=== PATIENT | female | born 1945 | race Caucasian/White ===

== ENCOUNTER 2017-03-19 05:51 | Day surgery (SDC) | payer MEDICARE, OTHER ==
[2017-03-19] MEDS ORDERED: DIPRIVAN 200 MG/20 ML IV ONE (05:52)
[2017-03-19] MEDS ORDERED: Versed 2 MG/2 ML Injection IV ONE (05:52)
[2017-03-19] MEDS ORDERED: Lactated Ringers 1,000 ML IV SCH (06:00)
[2017-03-19 08:42] VITALS: O2SAT 95
--- NOTE | 2017-03-19 08:46 | OP ---
SURGERY DATE/TIME: 03/19/2017723 PREOPERATIVE DIAGNOSIS: Screening colonoscopy. POSTOPERATIVE DIAGNOSES: 1) Normal colon. 2) Poor bowel prep. PROCEDURE: Colonoscopy. SURGEON: Joseph Gee M.D. ANESTHESIA: MAC by Kenny Link CRNA. ESTIMATED BLOOD LOSS: None. SPECIMENS: None. DESCRIPTION OF PROCEDURE: After informed written consent was obtained, the patient was taken to the endoscopy suite. She underwent monitored anesthesia and digital rectal exam showed no internal lesions. The scope was inserted into the rectum and sequentially the entire colonic mucosa was traversed. There was elim ira-green liquid stool throughout the entire length of the colon. The level of cecum was reached and verified with direct visualization of ileocecal valve. Upon withdrawal careful mucosal inspection revealed no gross abnormalities but again there were multiple areas of liquid stool that was attempted to be suction to give the best view possible but no obvious lesions were encountered. Prior to withdrawal retroflexion showed no internal lesions. The scope was removed and the patient was transferred to the recovery room in excellent condition.
[2017-03-19 09:05] VITALS: BP 128/58; PULSE 57
== END 2017-03-19 09:22 | disposition home or self-care (01) ==
LOC: SDC 05:51
PROVIDERS: ATTEND Family Medicine
PROC: 0DJD8ZZ Inspection of Lower Intestinal Tract, Via Natural or Artificial Opening Endoscopic (ICD-10-PCS; principal; 2017-03-19)
DX: Z12.11 Encounter for screening for malignant neoplasm of colon (principal)
CPT/HCPCS: 00810; 99100; G0121; J2250; J2704

== ENCOUNTER 2017-08-10 12:33 | Emergency (ER) | payer MEDICARE, OTHER ==
[2017-08-10] MEDS ORDERED: Sodium Chloride 0.9% 1000 ML 1,000 ML IV STA (12:42)
--- NOTE | 2017-08-10 12:58 | ERPHSYRPT ---
- History of Present Illness Time Seen by Provider: 08/10/17 12:56 Source: patient Patient Subjective Stated Complaint: PT STATES SHE HAS FELT WEAK OVER THE PAST FEW DAYS. STATES SHE HAS HAD A LEFT KNEE REPLACEMENT IN THE LAST 3 WEEKS. Triage Nursing Assessment: PT PALE, WARM, DRY. LUNG SOUNDS CLEAR ADN EQUAL. LEFT KNEE INCISION INTACT. NO REDNESS OR SWELLING NOTED. STERI-STRIPS IN PLACE. Physician History: c/o weakness for 2-3 days, left knee surgery 3 weeks ago Timing/Duration: day(s) Severity: mild Associated Symptoms: weakness Allergies/Adverse Reactions: No Known Drug Allergies Allergy (Verified 08/10/17 12:39) Home Medications: Omeprazole Magnesium [Prilosec Otc] 40 mg PO DAILY 03/14/17 [History] Ropinirole HCl 1 mg PO QHS 03/14/17 [History] Simvastatin 20Mg [Zocor 20Mg] 20 mg PO DAILY 03/14/17 [History] Calcium Carbonate/Vitamin D3 [Calcium 500-Vit D3 600 Tablet] 1 each PO DAILY [History] Hydrocodone/Acetaminophen [Hydrocodone-Acetamin 7.5-325] 1 tab PO Q4-6HPRN PRN 08/10/17 [History] Ondansetron HCl [Zofran] 4 mg PO Q6-8HPRN PRN 08/10/17 [History] Vitamin B Complex [Hi B Complex] 1 each PO DAILY 08/10/17 [History] Hx Tetanus, Diphtheria Vaccination/Date Given: Yes (UNKNOWN) Hx Influenza Vaccination/Date Given: Yes Hx Pneumococcal Vaccination/Date Given: No Immunizations Up to Date: Yes - Review of Systems Constitutional: Weakness, No Fever, No Chills Eyes: No Symptoms Ears, Nose, & Throat: No Symptoms Respiratory: No Cough, No Dyspnea Cardiac: No Chest Pain, No Edema, No Syncope Abdominal/Gastrointestinal: No Abdominal Pain, No Nausea, No Vomiting, No Diarrhea Genitourinary Symptoms: No Dysuria Musculoskeletal: No Back Pain, No Neck Pain Skin: No Rash Neurological: No Dizziness, No Focal Weakness, No Sensory Changes Psychological: No Symptoms Endocrine: No Symptoms All Other Systems: Reviewed and Negative - Past Medical History Pertinent Past Medical History: Yes Neurological History: No Pertinent History ENT History: No Pertinent History Cardiac History: High Cholesterol Respiratory History: No Pertinent History Endocrine Medical History: No Pertinent History Musculoskeletal History: No Pertinent History GI Medical History: GERD History: No Pertinent History Psycho-Social History: No Pertinent History Female Reproductive Disorders: No Pertinent History Other Medical History: Restless leg syndrome - Past Surgical History Past Surgical History: Yes Neuro Surgical History: No Pertinent History Cardiac: No Pertinent History Respiratory: No Pertinent History Gastrointestinal: No Pertinent History Genitourinary: No Pertinent History Musculoskeletal: Joint Replacement, Orthopedic Surgery Female Surgical History: Other Other Surgical History: Wrist surgery. Leg surgery. Bladder tie up. EGD - Social History Smoking Status: Never smoker Exposure to second hand smoke: Yes Drug Use: none Patient Lives Alone: No - Female History Hx Now: No - Nursing Vital Signs Nursing Vital Signs: Initial Vital Signs Temperature 98.3 F 08/10/17 12:34 Pulse Rate 70 08/10/17 12:34 Respiratory Rate 20 08/10/17 12:34 Blood Pressure 191/94 08/10/17 12:34 O2 Sat by Pulse Oximetry 98 08/10/17 12:34 Pain Scale Pain Intensity 0 - Physical Exam General Appearance: no apparent distress, alert Eye Exam: PERRL/EOMI, eyes nml inspection Ears, Nose, Throat Exam: normal ENT inspection, TMs normal, pharynx normal, moist mucous membranes Neck Exam: normal inspection, non-tender, supple, full range of motion Respiratory Exam: normal breath sounds, lungs clear, No respiratory distress Cardiovascular Exam: regular rate/rhythm, normal heart sounds, normal peripheral pulses Gastrointestinal/Abdomen Exam: soft, normal bowel sounds, No tenderness, No mass Back Exam: normal inspection, normal range of motion, No CVA tenderness, No vertebral tenderness Extremity Exam: normal inspection, normal range of motion, pelvis stable Neurologic Exam: alert, oriented x 3, cooperative, normal mood/affect, nml cerebellar function, nml station & gait, sensation nml, No motor deficits Skin Exam: normal color, warm, dry, No rash Lymphatic Exam: No adenopathy SpO2: 98 Oxygen Delivery: Room Air - Course Nursing assessment & vital signs reviewed: Yes - Radiology Exams Chest X-ray Interpretation: Reviewed by me Ordered Tests: Active Orders 24 hr Category Date Time Status EKG-ER Only STAT Care 08/10/17 12:53 Active IV Insertion STAT Care 08/10/17 12:52 Active cath [Cath for Specimen-Straight] STAT Care 08/10/17 13:11 Active CHEST 2 VIEWS (PA AND LAT) Stat Exams 08/10/17 12:43 Taken CBC W DIFF Stat Lab 08/10/17 12:55 Completed CMP Stat Lab 08/10/17 12:55 Completed MAGNESIUM Stat Lab 08/10/17 12:55 Completed UA W/RFX UR CULTURE Stat Lab 08/10/17 12:55 Completed Medication Summary Discontinued Medications Generic Name Dose Route Start Last Admin Trade Name Rik PRN Reason Stop Dose Admin Sodium Chloride 1,000 mls @ 999 mls/hr 08/10/17 12:42 08/10/17 13:06 Sodium Chloride 0.9% 1000 Ml IV 08/10/17 13:42 999 mls/hr .Q1H1M STA Administration Sodium Chloride Confirm 08/10/17 13:05 Sodium Chloride 0.9% 1000 Ml Administered 08/10/17 13:06 Dose 1,000 mls @ ud .ROUTE .STK-MED ONE Lab/Rad Data: Laboratory Result Diagrams 08/10/17 12:55 08/10/17 12:55 Laboratory Results 08/10/17 08/10/17 08/10/17 Range/Units 12:55 12:55 12:55 WBC 5.7 (4.0-10.5) K/mm3 RBC 3.61 L (4.1-5.4) M/mm3 Hgb 10.8 L (12.0-16.0) gm/dl Hct 35.0 (35-47) % MCV 97.0 (78-100) fl MCH 29.9 (26-32) pg MCHC 30.9 L (32-36) g/dl RDW 13.3 (11.5-14.0) % Plt Count 412 (150-450) K/mm3 MPV 9.9 H (6-9.5) fl Gran % 70.2 H (36.0-66.0) % Lymphocytes % 16.3 L (24.0-44.0) % Monocytes % 11.5 (0.0-12.0) % Eosinophils % 1.6 (0.00-5.0) % Basophils % 0.4 (0.0-0.4) % Basophils # 0.02 (0-0.4) Sodium 138 (136-145) mEq/L Potassium 4.0 (3.5-5.1) mEq/L Chloride 101 (98-107) mEq/L Carbon Dioxide 30.5 (21-32) mEq/L Anion Gap 10.6 (5-15) MEQ/L BUN 10 (9-20) mg/dL Creatinine 0.80 (0.55-1.30) mg/dl Estimated GFR > 60 ML/MIN Glucose 107 (70-110) MG/DL Calcium 8.9 (8.5-10.1) mg/dL Magnesium 2.6 H (1.8-2.4) mg/dL Total Bilirubin 0.40 (0.2-1.0) mg/dL AST 20 (15-37) U/L ALT 21 (12-78) U/L Alkaline Phosphatase 77 (46-116) U/L Serum Total Protein 6.7 (6.4-8.2) gm/dL Albumin 3.4 (3.4-5.0) g/dL Ur Collection Type CATH Urine Color YELLOW (YELLOW) Urine Appearance CLEAR (CLEAR) Urine pH 8.0 (5-6) Ur Specific [place] 1.005 (1.005-1.025) Urine Protein NEGATIVE (Negative) Urine Ketones NEGATIVE (NEGATIVE) Urine Blood NEGATIVE (0-5) Brendan/ul Urine Nitrite NEGATIVE (NEGATIVE) Urine Bilirubin NEGATIVE (NEGATIVE) Urine Urobilinogen NORMAL (0-1) mg/dL Ur Leukocyte Esterase NEGATIVE (NEGATIVE) Urine Culture Reflexed NO (NO) Urine Glucose NEGATIVE (NEGATIVE) mg/dL Specimen Received 1255 08/10/17 - Progress Progress: improved Counseled pt/family regarding: lab results, diagnosis, need for follow-up, rad results - Departure Time of Disposition: 13:49 Departure Disposition: Home Clinical Impression: Weakness generalized Iron deficiency anemia Qualifiers: Iron deficiency anemia type: chronic blood loss Qualified Code(s): D50.0 - Iron deficiency anemia secondary to blood loss (chronic) Condition: Stable Critical Care Time: No Referrals: MARIELOS MCCORD MD [Primary Care Provider] - Instructions: Anemia Caused by Low Iron, Adult (DC) Additional Instructions: LUIS ANTONIO NORMAN was seen on 08/10/17 n the Emergency Room. At that time you were treated for an emergent condition, during your visit Laboratory, Radiology and/or other procedures may have been ordered. It is very important that you follow-up with your Primary Care Physician MARIELOS MCCORD within the next 24- 48 hours to review your Emergency Room visit and the final results of testing that was ordered. Some test results such as Urine Cultures, Blood Cultures, and other cultures if ordered will not be finalized for 24-48 hours. If you do not have a Primary Care Provider please call the medical records department at [phone] to obtain a copy of your results or you may sign into our patient portal to obtain these results by visiting us @ [email or web address] and completing the following steps: 1. Click on the Patient Portal link 2. Click the Patient Self Enrollment Link to complete the enrollment form and entering your 3. Once the enrollment form is completed you will receive an email with a temporary ID and password at the email address you provided. 4. Next choose a user name and password. Your user name must be at least 4 characters long and your password must be at least 4 characters long. 5. Choose a security question from the list and provide your answer to the question. If you already have signed into the Health Portal you may access your Health Care Information 03/02 by the following steps: 1. Login to our website @ [email or web address] 2. Enter your original user name and password. FAQS The [facility] Health Portal is an online tool that contains your Lab Results, Radiology Reports, Visit History, Discharge Instructions and Health Summary Lab and Radiology Results will not be available for 72 hours on the portal. The Portal is a secure site, passwords are encryted and URLs are re-written so they cannot be copied and pasted. You and authorized family members are the only ones who can access your Portal. Also there is a timeout feature that protects your information if you leave the Portal page open. If you have technical difficulty please use the Contact Us link on the page this will allow you to submit any questions you have regarding the Portal or you may contact the Medical Record Department at [phone].
[2017-08-10 13:02] LABS: Appearance CLEAR (CLEAR); BASOPHIL % 0.4 % (0.0-0.4); Basophil (Absolute #) 0.02 (0-0.4); Bilirubin NEGATIVE (NEGATIVE); Blood NEGATIVE Ery/ul (0-5); Eosinophil % 1.6 % (0.00-5.0); Eosinophil (Absolute #) 0.09 (0-0.5); Glucose NEGATIVE (NEGATIVE); Granulocyte Absolute (ANC) 3.97 (1.4-6.9); Granulocytes % 70.2 % (36.0-66.0); Hemoglobin 10.8 gm/dl (12.0-16.0); Ketones NEGATIVE (NEGATIVE); Leukocyte Esterase NEGATIVE (NEGATIVE); Lymphocyte (Absolute #) 0.92 (1.0-4.6); Lymphocytes % 16.3 % (24.0-44.0); Mean Corpuscular Hemoglobin 29.9 pg (26-32); Mean Corpuscular Hgb Concent. 30.9 g/dl (32-36); Mean Platelet Volume 9.9 fl (6-9.5); Monocyte (Absolute #) 0.65 (0.0-1.3); Monocytes % 11.5 % (0.0-12.0); Nitrite NEGATIVE (NEGATIVE); Platelet Count 412 K/mm3 (150-450); Protein,Urine Dip NEGATIVE (Negative); Red Blood Count 3.61 M/mm3 (4.1-5.4); Red Cell Distribution Width 13.3 % (11.5-14.0); Specific Gravity 1.005 (1.005-1.025); Urobilinogen NORMAL mg/dL (0-1); White Blood Count 5.7 K/mm3 (4.0-10.5)
[2017-08-10] MEDS ORDERED: Sodium Chloride 0.9% 1000 ML 1,000 ML ONE (13:05)
[2017-08-10 13:27] LABS: ALBUMIN 3.4 g/dL (3.4-5.0); ALKALINE PHOSPHATASE 77 U/L (46-116); ANION GAP 10.6 MEQ/L (5-15); BLOOD UREA NITROGEN 10 mg/dL (9-20); CHLORIDE 101 mEq/L (98-107); Calcium 8.9 mg/dL (8.5-10.1); Carbon Dioxide 30.5 mEq/L (21-32); EST GLOMERULAR FILTRATION RATE > 60 ML/MIN; Glucose 107 MG/DL (70-110); MAGNESIUM 2.6 mg/dL (1.8-2.4); SGOT/AST 20 U/L (15-37); SGPT/ALT 21 U/L (12-78); SODIUM 138 mEq/L (136-145); Total Protein 6.7 gm/dL (6.4-8.2)
[2017-08-10 14:32] VITALS: BP 160/80; PULSE 64; O2SAT 97
--- NOTE | 2017-08-10 20:53 | XRAY ---
Indication: Malaise and weakness. Comparison: May 21, 2016. PA/lateral chest remains hyperinflated and clear. Heart is not enlarged. Stable hiatal hernia. Bony thorax intact again with osteopenia, mild degenerative changes, old right rib fractures, and scoliosis. Impression: Stable nonacute chest with chronic features.
== END 2017-08-10 14:31 | disposition home or self-care (01) ==
LOC: ED 12:33
DX: M62.81 Muscle weakness (generalized) (principal); D50.0 Iron deficiency anemia secondary to blood loss (chronic); K21.9 Gastro-esophageal reflux disease without esophagitis; Z79.899 Other long term (current) drug therapy
CPT/HCPCS: 99284; 36000; 96360; 93005; 81002; 36415; 83735; 85025; 80053; 71046; P9612

== ENCOUNTER 2017-08-13 22:58 | Emergency (ER) | payer MEDICARE, OTHER ==
[2017-08-13] MEDS ORDERED: Sodium Chloride 0.9% 1000 ML 1,000 ML IV STA (23:24)
--- NOTE | 2017-08-13 23:28 | ERPHSYRPT ---
- History of Present Illness Time Seen by Provider: 08/13/17 23:17 Source: patient Exam Limitations: no limitations Patient Subjective Stated Complaint: Came in on Friday for weakness and weakness has gotten worse Triage Nursing Assessment: A&O x3, gait unsteady, pt states that she is anemic, muscles don't ache, complains of weakness, left knee surgery 3 weeks ago, states that she has lost 15 lbs over 3 weeks, no appetite, bilateral pulses strong Physician History: 72 y/o female comes back to the ER with complaints of weakness for the last several days. Pt was seen on Friday with similar complaints but states that the weakness has gotten worse. Pt admits to having 4 small bowel movements today but prior to this has been constipated. Pt says that she felt weak like this before at which time she had a bleeding ulcer. Pt states she has lost 15 lbs in the last 3 months and states she has no appetite. Pt denies any fever, chills, chest pain, shortness of breath, dizziness, cough, runny nose, sore throat or muscle aches. Timing/Duration: day(s) Severity: moderate Modifying Factors: Improves With: nothing Allergies/Adverse Reactions: No Known Drug Allergies Allergy (Verified 08/13/17 23:24) Home Medications: Omeprazole Magnesium [Prilosec Otc] 40 mg PO DAILY 03/14/17 [History] Ropinirole HCl 1 mg PO QHS 03/14/17 [History] Simvastatin 20Mg [Zocor 20Mg] 20 mg PO DAILY 03/14/17 [History] Calcium Carbonate/Vitamin D3 [Calcium 500-Vit D3 600 Tablet] 1 each PO DAILY [History] Hydrocodone/Acetaminophen [Hydrocodone-Acetamin 7.5-325] 1 tab PO Q4-6HPRN PRN 08/10/17 [History] Ondansetron HCl [Zofran] 4 mg PO Q6-8HPRN PRN 08/10/17 [History] Vitamin B Complex [Hi B Complex] 1 each PO DAILY 08/10/17 [History] Aspirin 81 mg PO DAILY 08/13/17 [History] Hx Tetanus, Diphtheria Vaccination/Date Given: Yes (UNKNOWN) Hx Influenza Vaccination/Date Given: Yes Hx Pneumococcal Vaccination/Date Given: No - Review of Systems Constitutional: Weakness, No Fever, No Chills Eyes: No Symptoms Ears, Nose, & Throat: No Symptoms Respiratory: No Cough, No Dyspnea Cardiac: No Chest Pain, No Edema, No Syncope Abdominal/Gastrointestinal: Constipation, No Abdominal Pain, No Nausea, No Vomiting, No Diarrhea Genitourinary Symptoms: No Dysuria Musculoskeletal: No Back Pain, No Neck Pain, No Myalgias Skin: No Symptoms, No Rash Neurological: No Dizziness, No Focal Weakness, No Headache, No Sensory Changes, No Speech Changes Psychological: No Symptoms Endocrine: No Symptoms All Other Systems: Reviewed and Negative - Past Medical History Pertinent Past Medical History: Yes Neurological History: No Pertinent History ENT History: No Pertinent History Cardiac History: High Cholesterol Respiratory History: No Pertinent History Endocrine Medical History: No Pertinent History Musculoskeletal History: No Pertinent History GI Medical History: GERD History: No Pertinent History Psycho-Social History: No Pertinent History Female Reproductive Disorders: No Pertinent History Other Medical History: Restless leg syndrome - Past Surgical History Past Surgical History: Yes Neuro Surgical History: No Pertinent History Cardiac: No Pertinent History Respiratory: No Pertinent History Gastrointestinal: No Pertinent History Genitourinary: No Pertinent History Musculoskeletal: Joint Replacement, Orthopedic Surgery Female Surgical History: Other Other Surgical History: Wrist surgery. Leg surgery. Bladder tie up. EGD - Social History Smoking Status: Never smoker Exposure to second hand smoke: Yes Drug Use: none Patient Lives Alone: No - Nursing Vital Signs Nursing Vital Signs: Initial Vital Signs Temperature 97.5 F 08/13/17 23:14 Blood Pressure 159/77 08/13/17 23:14 Pain Scale Pain Intensity 0 - Physical Exam General Appearance: no apparent distress, alert Eye Exam: PERRL/EOMI, eyes nml inspection Ears, Nose, Throat Exam: normal ENT inspection, TMs normal, pharynx normal, moist mucous membranes Neck Exam: normal inspection, non-tender, supple, full range of motion Respiratory Exam: normal breath sounds, lungs clear, No respiratory distress Cardiovascular Exam: regular rate/rhythm, normal heart sounds, normal peripheral pulses Gastrointestinal/Abdomen Exam: soft, normal bowel sounds, No tenderness, No distention, No mass Back Exam: normal inspection, normal range of motion, No CVA tenderness, No vertebral tenderness Extremity Exam: normal inspection, normal range of motion, pelvis stable Neurologic Exam: alert, oriented x 3, cooperative, normal mood/affect, nml cerebellar function, nml station & gait, sensation nml, No motor deficits Skin Exam: normal color, warm, dry, No rash Lymphatic Exam: No adenopathy Oxygen Delivery: Room Air - Course Nursing assessment & vital signs reviewed: Yes Ordered Tests: Active Orders 24 hr Category Date Time Status EKG-ER Only STAT Care 08/13/17 23:24 Active KUB Stat Exams 08/13/17 12:00 Taken CBC W DIFF Stat Lab 08/13/17 23:41 Completed CMP Stat Lab 08/13/17 23:41 Completed Erythrocyte Sedimentation Rate Stat Lab 08/13/17 23:41 Completed Mower Screen Stat Lab 08/13/17 23:41 Completed TROPONIN Q3H Lab 08/13/17 23:41 Completed TROPONIN Q3H Lab 08/14/17 02:30 Ordered TROPONIN Q3H Lab 08/14/17 05:30 Ordered TROPONIN Q3H Lab 08/14/17 08:30 Ordered TROPONIN Q3H Lab 08/14/17 11:30 Ordered TSH, 3RD Generation Routine Lab 08/13/17 23:41 Completed UA W/ MICROSCOPIC Stat Lab 08/13/17 00:31 Completed Medication Summary Discontinued Medications Generic Name Dose Route Start Last Admin Trade Name Trayq PRN Reason Stop Dose Admin Sodium Chloride 1,000 mls @ 999 mls/hr 08/13/17 23:24 08/13/17 23:55 Sodium Chloride 0.9% 1000 Ml IV 08/14/17 00:24 999 mls/hr .Q1H1M STA Administration Sodium Chloride Confirm 08/13/17 23:54 Sodium Chloride 0.9% 1000 Ml Administered 08/13/17 23:55 Dose 1,000 mls @ ud .ROUTE .STK-MED ONE Potassium Chloride 40 meq 08/14/17 00:31 08/14/17 00:34 Klor Con 10 Meq PO 08/14/17 00:32 40 meq STAT ONE Administration Potassium Chloride Confirm 08/14/17 00:34 Klor Con 10 Meq Administered 08/14/17 00:35 Dose 40 meq PO .STK-MED ONE Lab/Rad Data: Laboratory Result Diagrams 08/13/17 23:41 08/13/17 23:41 Laboratory Results 08/13/17 08/13/17 08/13/17 Range/Units 23:41 23:41 23:41 WBC (4.0-10.5) K/mm3 RBC (4.1-5.4) M/mm3 Hgb (12.0-16.0) gm/dl Hct (35-47) % MCV (78-100) fl MCH (26-32) pg MCHC (32-36) g/dl RDW (11.5-14.0) % Plt Count (150-450) K/mm3 MPV (6-9.5) fl Gran % (36.0-66.0) % Lymphocytes % (24.0-44.0) % Monocytes % (0.0-12.0) % Eosinophils % (0.00-5.0) % Basophils % (0.0-0.4) % Basophils # (0-0.4) ESR (0-20) mm/hr Sodium 142 (136-145) mEq/L Potassium 3.4 L (3.5-5.1) mEq/L Chloride 106 (98-107) mEq/L Carbon Dioxide 26.0 (21-32) mEq/L Anion Gap 13.7 (5-15) MEQ/L BUN 12 (9-20) mg/dL Creatinine 0.93 (0.55-1.30) mg/dl Estimated GFR > 60 ML/MIN Glucose 122 H (70-110) MG/DL Calcium 9.0 (8.5-10.1) mg/dL Total Bilirubin 0.20 (0.2-1.0) mg/dL AST 11 L (15-37) U/L ALT 17 (12-78) U/L Alkaline Phosphatase 81 (46-116) U/L Troponin I < 0.017 (0.000-0.056) ng/ml Serum Total Protein 6.7 (6.4-8.2) gm/dL Albumin 3.4 (3.4-5.0) g/dL TSH 3rd Generation 2.106 (0.358-3.740) mIU/L Ur Collection Type Urine Color (YELLOW) Urine Appearance (CLEAR) Urine pH (5-6) Ur Specific [place] (1.005-1.025) Urine Protein (Negative) Urine Ketones (NEGATIVE) Urine Blood (0-5) Brendan/ul Urine Nitrite (NEGATIVE) Urine Bilirubin (NEGATIVE) Urine Urobilinogen (0-1) mg/dL Ur Leukocyte Esterase (NEGATIVE) Urine Microscopic RBC (0-2) /HPF Urine Microscopic WBC (0-5) /HPF Ur Epithelial Cells (FEW) /HPF Urine Bacteria (NEGATIVE) /HPF Urine Mucus (NEGATIVE) /HPF Urine Culture Reflexed (NO) Urine Glucose (NEGATIVE) mg/dL Monoscreen NEGATIVE (Negative) Influenza Type A Ag (NEGATIVE) Influenza Type B Ag (NEGATIVE) RSV (PCR) (Negative) Specimen Received 08/13/17 08/13/17 08/13/17 Range/Units 23:41 23:31 00:31 WBC 6.1 (4.0-10.5) K/mm3 RBC 3.82 L (4.1-5.4) M/mm3 Hgb 11.7 L (12.0-16.0) gm/dl Hct 37.2 (35-47) % MCV 97.4 (78-100) fl MCH 30.6 (26-32) pg MCHC 31.5 L (32-36) g/dl RDW 13.5 (11.5-14.0) % Plt Count 376 (150-450) K/mm3 MPV 10.0 H (6-9.5) fl Gran % 61.2 (36.0-66.0) % Lymphocytes % 20.7 L (24.0-44.0) % Monocytes % 13.7 H (0.0-12.0) % Eosinophils % 3.6 (0.00-5.0) % Basophils % 0.8 (0.0-0.4) % Basophils # 0.05 (0-0.4) ESR 21 H (0-20) mm/hr Sodium (136-145) mEq/L Potassium (3.5-5.1) mEq/L Chloride (98-107) mEq/L Carbon Dioxide (21-32) mEq/L Anion Gap (5-15) MEQ/L BUN (9-20) mg/dL Creatinine (0.55-1.30) mg/dl Estimated GFR ML/MIN Glucose (70-110) MG/DL Calcium (8.5-10.1) mg/dL Total Bilirubin (0.2-1.0) mg/dL AST (15-37) U/L ALT (12-78) U/L Alkaline Phosphatase (46-116) U/L Troponin I (0.000-0.056) ng/ml Serum Total Protein (6.4-8.2) gm/dL Albumin (3.4-5.0) g/dL TSH 3rd Generation (0.358-3.740) mIU/L Ur Collection Type VOID Urine Color YELLOW (YELLOW) Urine Appearance CLEAR (CLEAR) Urine pH 5.0 (5-6) Ur Specific [place] 1.020 (1.005-1.025) Urine Protein NEGATIVE (Negative) Urine Ketones NEGATIVE (NEGATIVE) Urine Blood NEGATIVE (0-5) Brendan/ul Urine Nitrite NEGATIVE (NEGATIVE) Urine Bilirubin NEGATIVE (NEGATIVE) Urine Urobilinogen NORMAL (0-1) mg/dL Ur Leukocyte Esterase TRACE (NEGATIVE) Urine Microscopic RBC 0-2 (0-2) /HPF Urine Microscopic WBC 0-2 (0-5) /HPF Ur Epithelial Cells MODERATE (FEW) /HPF Urine Bacteria FEW (NEGATIVE) /HPF Urine Mucus SLIGHT (NEGATIVE) /HPF Urine Culture Reflexed NO (NO) Urine Glucose NEGATIVE (NEGATIVE) mg/dL Monoscreen (Negative) Influenza Type A Ag NEGATIVE (NEGATIVE) Influenza Type B Ag NEGATIVE (NEGATIVE) RSV (PCR) NEGATIVE (Negative) Specimen Received 08/14/1729 - Progress Progress: improved Progress Note: 08/14/17 01:08 The patient feels better after receiving NS fluids. The abdominal x ray is normal. The labs are all within normal limits except for the potassium level which has been replaced. The patient will be d/c home with advise to F/U with PCP. - Departure Time of Disposition: 01:09 Departure Disposition: Home Clinical Impression: Weakness Condition: Stable Critical Care Time: No Referrals: MARIELOS MCCORD MD [Primary Care Provider] - Instructions: Generalized Weakness (DC) Additional Instructions: Follow up with your primary care doctor in the next few days.
[2017-08-13 23:47] LABS: BASOPHIL % 0.8 % (0.0-0.4); Basophil (Absolute #) 0.05 (0-0.4); Eosinophil % 3.6 % (0.00-5.0); Eosinophil (Absolute #) 0.22 (0-0.5); Granulocyte Absolute (ANC) 3.72 (1.4-6.9); Granulocytes % 61.2 % (36.0-66.0); Hematocrit 37.2 % (35-47); Hemoglobin 11.7 gm/dl (12.0-16.0); Lymphocyte (Absolute #) 1.26 (1.0-4.6); Lymphocytes % 20.7 % (24.0-44.0); Mean Cell Volume 97.4 fl (78-100); Mean Corpuscular Hemoglobin 30.6 pg (26-32); Mean Corpuscular Hgb Concent. 31.5 g/dl (32-36); Monocyte (Absolute #) 0.83 (0.0-1.3); Monocytes % 13.7 % (0.0-12.0); Platelet Count 376 K/mm3 (150-450); Red Blood Count 3.82 M/mm3 (4.1-5.4); Red Cell Distribution Width 13.5 % (11.5-14.0); White Blood Count 6.1 K/mm3 (4.0-10.5)
[2017-08-13] MEDS ORDERED: Sodium Chloride 0.9% 1000 ML 1,000 ML ONE (23:54)
[2017-08-14 00:08] LABS: Erythrocyte Sedimentation Rate 21 mm/hr (0-20)
[2017-08-14 00:16] LABS: ALBUMIN 3.4 g/dL (3.4-5.0); ALKALINE PHOSPHATASE 81 U/L (46-116); ANION GAP 13.7 MEQ/L (5-15); BLOOD UREA NITROGEN 12 mg/dL (9-20); CHLORIDE 106 mEq/L (98-107); Creatinine 1 0.93 mg/dl (0.55-1.30); EST GLOMERULAR FILTRATION RATE > 60 ML/MIN; Glucose 122 MG/DL (70-110); Potassium 3.4 mEq/L (3.5-5.1); SGOT/AST 11 U/L (15-37); SGPT/ALT 17 U/L (12-78); SODIUM 142 mEq/L (136-145); Total Protein 6.7 gm/dL (6.4-8.2)
[2017-08-14 00:28] LABS: TSH, 3RD Generation 2.106 mIU/L (0.358-3.740)
[2017-08-14 00:31] LABS: TROPONIN < 0.017 ng/ml (0.000-0.056)
[2017-08-14] MEDS ORDERED: Klor Con 10 MEQ PO ONE ×2 (00:31→00:34)
[2017-08-14 00:36] LABS: INFLUENZA A NEGATIVE (NEGATIVE); INFLUENZA B NEGATIVE (NEGATIVE); RESPIRATORY SYNCTIAL VIRUS NEGATIVE (Negative)
[2017-08-14 00:51] LABS: Appearance CLEAR (CLEAR); Bacteria FEW /HPF (NEGATIVE); Bilirubin NEGATIVE (NEGATIVE); Blood NEGATIVE Ery/ul (0-5); Epithelial Cells MODERATE /HPF (FEW); Glucose NEGATIVE (NEGATIVE); Ketones NEGATIVE (NEGATIVE); Leukocyte Esterase TRACE (NEGATIVE); Mucus SLIGHT /HPF (NEGATIVE); Nitrite NEGATIVE (NEGATIVE); Protein,Urine Dip NEGATIVE (Negative); Urobilinogen NORMAL mg/dL (0-1); WBC 0-2 /HPF (0-5)
[2017-08-14 01:10] VITALS: BP 158/85
--- NOTE | 2017-08-14 08:42 | XRAY ---
Indication: Anemia, weakness, constipation. Comparison: None KUB is nonacute and nonobstructed. Solid organs unremarkable. 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 Scattered aortic calcifications. Impression: Negative KUB with chronic features.
== END 2017-08-14 01:27 | disposition home or self-care (01) ==
LOC: ED 22:58
DX: R53.1 Weakness (principal); E87.6 Hypokalemia; Z79.899 Other long term (current) drug therapy; Z98.890 Other specified postprocedural states
CPT/HCPCS: 36000; 36415; 74018; 80053; 81000; 84443; 84484; 85025; 85652; 86308; 87631; 93005; 99283; A9270-GY

== ENCOUNTER 2019-04-01 20:15 | Observation (INO) | payer MEDICARE, OTHER ==
[2019-04-01] MEDS ORDERED: BABY ASPIRIN 81 MG CHEW PO ONE (20:50)
[2019-04-01] MEDS ORDERED: Sodium Chloride 0.9% 1000 ML 1,000 ML IV STA (20:50)
--- NOTE | 2019-04-01 20:55 | ERPHSYRPT ---
- History of Present Illness Time Seen by Provider: 04/01/19 20:40 Historian: patient Exam Limitations: no limitations Patient Subjective Stated Complaint: Chest pain Triage Nursing Assessment: Patient ambulated into ED and transferred self to bed. Patient A+O X3. Patient's skin pink, warm and dry. Patient complains of pain in left side that went up to chest and down left arm around 1830 after eating dinner. Patient complains of intermittent throbbing, sharp pain 5/10. Patient's lung clear a/p zakiya. Heart tones audible. No edema noted. Physician History: Patient had sudden onset of left chest pain that is sharp with radiation to the back and left arm. It lasted for 30 minutes. Patient states pain has resolved now. Similar symptoms occurred 3 days, but much more brief. Both occurred while eating. Timing/Duration: today Activities at Onset: other (eating) Quality: sharpness Location: central Chest Pain Radiation: arm, back Severity of Pain-Max: severe Severity of Pain-Current: none Modifying Factors: Improves With: eating Associated Symptoms: No nausea, No vomiting, No palpitations, No heartburn, No abdominal pain, No shortness of breath, No cough, No hurts to breathe, No diaphoresis, No chills, No fever, No fatigue, No weakness, No swelling/lump in chest, No syncope, No rash, No headache, No dizziness, No edema, No back pain Prior Chest Pain/Cardiac Workup: no prior cardiac workup Nitro Today/Relief: no nitro taken today Aspirin Treatment Today: 81 mg x 1 Allergies/Adverse Reactions: No Known Drug Allergies Allergy (Verified 04/01/19 20:24) Home Medications: Ropinirole HCl 1 mg PO QHS 03/14/17 [History] Simvastatin 20Mg [Zocor 20Mg] 20 mg PO DAILY 03/14/17 [History] Aspirin 81 mg PO DAILY 08/13/17 [History] Hx Tetanus, Diphtheria Vaccination/Date Given: Yes (UNKNOWN) Hx Influenza Vaccination/Date Given: Yes Hx Pneumococcal Vaccination/Date Given: No Immunizations Up to Date: Yes - Review of Systems Constitutional: No Fever, No Chills Eyes: No Discharge Ears, Nose, & Throat: No Mouth Swelling, No Throat Pain, No Painful Swallowing Respiratory: No Cough, No Dyspnea Cardiac: Chest Pain, No Edema, No Syncope Abdominal/Gastrointestinal: No Abdominal Pain, No Nausea, No Vomiting, No Diarrhea Genitourinary Symptoms: No Dysuria, No Hematuria, No Flank Pain Musculoskeletal: No Back Pain, No Neck Pain Skin: No Rash Neurological: No Dizziness, No Focal Weakness, No Sensory Changes Psychological: No Symptoms Endocrine: No Symptoms Hematologic/Lymphatic: No Easy Bleeding, No Easy Bruising All Other Systems: Reviewed and Negative - Past Medical History Pertinent Past Medical History: Yes Neurological History: No Pertinent History ENT History: No Pertinent History Cardiac History: High Cholesterol Respiratory History: No Pertinent History Endocrine Medical History: No Pertinent History Musculoskeletal History: Arthritis GI Medical History: GERD History: No Pertinent History Psycho-Social History: No Pertinent History Female Reproductive Disorders: No Pertinent History Other Medical History: Restless leg syndrome - Past Surgical History Past Surgical History: Yes Neuro Surgical History: No Pertinent History Cardiac: No Pertinent History Respiratory: No Pertinent History Gastrointestinal: No Pertinent History Genitourinary: No Pertinent History Musculoskeletal: Joint Replacement, Orthopedic Surgery Female Surgical History: Other Other Surgical History: Wrist surgery. Leg surgery. Bladder tie up. EGD - Social History Smoking Status: Never smoker Exposure to second hand smoke: Yes Drug Use: none Patient Lives Alone: No - Female History Hx Now: No - Nursing Vital Signs Nursing Vital Signs: Initial Vital Signs Pulse Rate 75 04/01/19 20:25 Respiratory Rate 18 04/01/19 20:25 Blood Pressure 183/84 04/01/19 20:25 O2 Sat by Pulse Oximetry 99 04/01/19 20:25 Pain Scale Pain Intensity 0 - Physical Exam General Appearance: no apparent distress, alert Eye Exam: PERRL/EOMI, eyes nml inspection Ears, Nose, Throat Exam: normal ENT inspection, moist mucous membranes Neck Exam: normal inspection, non-tender, supple, full range of motion Respiratory Exam: normal breath sounds, lungs clear, airway intact, No respiratory distress, No accessory muscle use, No crackles/rales, No rhonchi, No wheezing Cardiovascular Exam: regular rate/rhythm, normal heart sounds, normal peripheral pulses, capillary refill <2 sec Gastrointestinal/Abdomen Exam: soft, normal bowel sounds, No tenderness, No distention, No mass, No guarding, No rebound Back Exam: normal inspection, No CVA tenderness, No vertebral tenderness Extremity Exam: normal inspection, normal range of motion Neurologic Exam: alert, oriented x 3, cooperative, television production assistant II-XII nml as tested, normal mood/affect, sensation nml, No motor deficits Skin Exam: normal color, warm, dry SpO2 Interpretation: normal SpO2: 99 O2 Delivery: Room Air - Course Nursing assessment & vital signs reviewed: Yes EKG Interpreted by Me: RATE (73), Sinus Rhythm, NORMAL AXIS, NORMAL INTERVALS, NORMAL QRS, NORMAL ST-T, Other (negative change from EKG from 08/13/2017) Ordered Tests: Active Orders 24 hr Category Date Time Status Exchange Mechanic STAT Care 04/01/19 20:51 Active EKG-ER Only STAT Care 04/01/19 20:50 Active IV Insertion STAT Care 04/01/19 20:50 Active Pulse Oximetry (ED) STAT Care 04/01/19 20:50 Active CHEST 1 VIEW (PORTABLE) Stat Exams 04/01/19 22:02 Taken AMYLASE Stat Lab 04/01/19 20:52 Completed CBC W DIFF Stat Lab 04/01/19 20:50 Completed CMP Stat Lab 04/01/19 20:50 Completed LIPASE Stat Lab 04/01/19 20:52 Completed NT PRO BNP Stat Lab 04/01/19 20:50 Completed PROTIME WITH INR Stat Lab 04/01/19 20:50 Completed PTT Stat Lab 04/01/19 20:50 Completed TROPONIN Q3H Lab 04/01/19 21:00 Completed TROPONIN Q3H Lab 04/02/19 00:00 Ordered TROPONIN Q3H Lab 04/02/19 03:00 Ordered TROPONIN Q3H Lab 04/02/19 06:00 Ordered TROPONIN Q3H Lab 04/02/19 09:00 Ordered Medication Summary Discontinued Medications Generic Name Dose Route Start Last Admin Trade Name Trayq PRN Reason Stop Dose Admin Aspirin 243 mg 04/01/19 20:50 04/01/19 21:11 Baby Aspirin 81 Mg Chew PO 04/01/19 20:51 243 mg STAT ONE Administration Aspirin Confirm 04/01/19 21:09 Baby Aspirin 81 Mg Chew Administered 04/01/19 21:10 Dose 243 mg .ROUTE .STK-MED ONE Sodium Chloride 1,000 mls @ 999 mls/hr 04/01/19 20:50 04/01/19 22:38 Sodium Chloride 0.9% 1000 Ml IV 04/01/19 21:50 Infused .Q1H1M STA Infusion Sodium Chloride Confirm 04/01/19 21:10 Sodium Chloride 0.9% 1000 Ml Administered 04/01/19 21:11 Dose 1,000 mls @ ud .ROUTE .K-MED ONE Lab/Rad Data: Laboratory Result Diagrams 04/01/19 20:50 04/01/19 20:50 Laboratory Results 04/01/19 04/01/19 04/01/19 Range/Units 21:00 20:52 20:50 WBC (4.0-10.5) K/mm3 RBC (4.1-5.4) M/mm3 Hgb (12.0-16.0) gm/dl Hct (35-47) % MCV (78-100) fl MCH (26-32) pg MCHC (32-36) g/dl RDW (11.5-14.0) % Plt Count (150-450) K/mm3 MPV (6-9.5) fl Gran % (36.0-66.0) % Eos # (Auto) (0-0.5) Absolute Lymphs (auto) (1.0-4.6) Absolute Monos (auto) (0.0-1.3) Lymphocytes % (24.0-44.0) % Monocytes % (0.0-12.0) % Eosinophils % (0.00-5.0) % Basophils % (0.0-0.4) % Absolute Granulocytes (1.4-6.9) Basophils # (0-0.4) PT 10.9 (9.95-12.35) SECONDS INR 0.97 (0.8-3.0) APTT 33.8 (25.3-37.0) SECONDS Sodium (137-145) mmol/L Potassium (3.5-5.1) mmol/L Chloride (98-107) mmol/L Carbon Dioxide (22-30) mmol/L Anion Gap (5-15) MEQ/L BUN (7-17) mg/dL Creatinine (0.52-1.04) mg/dL Estimated GFR ML/MIN Glucose (74-106) mg/dL Calcium (8.4-10.2) mg/dL Total Bilirubin (0.2-1.3) mg/dL AST (14-36) U/L ALT (0-35) U/L Alkaline Phosphatase (38-126) U/L Troponin I < 0.012 (0.000-0.034) ng/mL NT-Pro-B Natriuret Pep (0-1800) pg/mL Serum Total Protein (6.3-8.2) g/dL Albumin (3.5-5.0) g/dL Amylase 47 (30-110) U/L Lipase 214 (23-300) U/L 04/01/19 04/01/19 Range/Units 20:50 20:50 WBC 6.7 (4.0-10.5) K/mm3 RBC 4.29 (4.1-5.4) M/mm3 Hgb 13.4 (12.0-16.0) gm/dl Hct 41.6 (35-47) % MCV 97.0 (78-100) fl MCH 31.2 (26-32) pg MCHC 32.2 (32-36) g/dl RDW 13.2 (11.5-14.0) % Plt Count 262 (150-450) K/mm3 MPV 11.1 H (6-9.5) fl Gran % 69.4 H (36.0-66.0) % Eos # (Auto) 0.16 (0-0.5) Absolute Lymphs (auto) 1.31 (1.0-4.6) Absolute Monos (auto) 0.55 (0.0-1.3) Lymphocytes % 19.6 L (24.0-44.0) % Monocytes % 8.2 (0.0-12.0) % Eosinophils % 2.4 (0.00-5.0) % Basophils % 0.4 (0.0-0.4) % Absolute Granulocytes 4.65 (1.4-6.9) Basophils # 0.03 (0-0.4) PT (9.95-12.35) SECONDS INR (0.8-3.0) APTT (25.3-37.0) SECONDS Sodium 141 (137-145) mmol/L Potassium 3.9 (3.5-5.1) mmol/L Chloride 102 (98-107) mmol/L Carbon Dioxide 30 (22-30) mmol/L Anion Gap 13.5 (5-15) MEQ/L BUN 16 (7-17) mg/dL Creatinine 0.75 (0.52-1.04) mg/dL Estimated GFR > 60.0 ML/MIN Glucose 143 H (74-106) mg/dL Calcium 9.2 (8.4-10.2) mg/dL Total Bilirubin 0.40 (0.2-1.3) mg/dL AST 25 (14-36) U/L ALT 20 (0-35) U/L Alkaline Phosphatase 64 (38-126) U/L Troponin I (0.000-0.034) ng/mL NT-Pro-B Natriuret Pep 205 (0-1800) pg/mL Serum Total Protein 7.0 (6.3-8.2) g/dL Albumin 4.3 (3.5-5.0) g/dL Amylase (30-110) U/L Lipase (23-300) U/L - Progress Progress: unchanged Air Movement: good Progress Note: 04/01/19 22:29 Patient has remained chest pain free throughout her time in the emergency department in sinus rhythm on the monitoring manager. 04/01/19 22:30 Discussed the patient with Dr Mccord, Hospitalist. Dr Mccord accepted the patient for observation to [facility] telemetry. Blood Culture(s) Obtained: No Antibiotics given: No Discussed with .: Ruddy Will see patient in: hospital (observation) Counseled pt/family regarding: lab results, diagnosis, need for follow-up, rad results - Departure Departure Disposition: Observation ([facility]) Clinical Impression: Elevated blood pressure reading without diagnosis of hypertension Chest pain Qualifiers: Chest pain type: unspecified Qualified Code(s): R07.9 - Chest pain, unspecified Condition: Fair Critical Care Time: No Referrals: MARIELOS MCCORD MD [Primary Care Provider] -
[2019-04-01 21:05] LABS: BASOPHIL % 0.4 % (0.0-0.4); Basophil (Absolute #) 0.03 (0-0.4); Eosinophil % 2.4 % (0.00-5.0); Eosinophil (Absolute #) 0.16 (0-0.5); Granulocyte Absolute (ANC) 4.65 (1.4-6.9); Granulocytes % 69.4 % (36.0-66.0); Hematocrit 41.6 % (35-47); Hemoglobin 13.4 gm/dl (12.0-16.0); Lymphocyte (Absolute #) 1.31 (1.0-4.6); Lymphocytes % 19.6 % (24.0-44.0); Mean Corpuscular Hemoglobin 31.2 pg (26-32); Mean Corpuscular Hgb Concent. 32.2 g/dl (32-36); Mean Platelet Volume 11.1 fl (6-9.5); Monocyte (Absolute #) 0.55 (0.0-1.3); Monocytes % 8.2 % (0.0-12.0); Platelet Count 262 K/mm3 (150-450); Red Blood Count 4.29 M/mm3 (4.1-5.4); Red Cell Distribution Width 13.2 % (11.5-14.0); White Blood Count 6.7 K/mm3 (4.0-10.5)
[2019-04-01 21:08] LABS: INR 0.97 (0.8-3.0); PROTIME 10.9 SECONDS (9.95-12.35)
[2019-04-01] MEDS ORDERED: BABY ASPIRIN 81 MG CHEW ONE (21:09)
[2019-04-01 21:10] LABS: PTT 33.8 SECONDS (25.3-37.0)
[2019-04-01] MEDS ORDERED: Sodium Chloride 0.9% 1000 ML 1,000 ML ONE (21:10)
[2019-04-01 21:11] LABS: AMYLASE 47 U/L (30-110); LIPASE 214 U/L (23-300)
[2019-04-01 21:22] LABS: ALBUMIN 4.3 g/dL (3.5-5.0); ALKALINE PHOSPHATASE 64 U/L (38-126); ANION GAP 13.5 MEQ/L (5-15); BLOOD UREA NITROGEN 16 mg/dL (7-17); CHLORIDE 102 mmol/L (98-107); Calcium 9.2 mg/dL (8.4-10.2); Carbon Dioxide 30 mmol/L (22-30); Creatinine 1 0.75 mg/dL (0.52-1.04); Glucose 143 mg/dL (74-106); NT PRO BNP 205 pg/mL (0-1800); Potassium 3.9 mmol/L (3.5-5.1); SGOT/AST 25 U/L (14-36); SGPT/ALT 20 U/L (0-35); SODIUM 141 mmol/L (137-145)
[2019-04-02] MEDS ORDERED: TYLENOL 325 MG PO PRN (00:33)
[2019-04-02] MEDS ORDERED: Sodium Chloride 0.9% 1000 ML 1,000 ML IV SCH (00:33)
[2019-04-02 04:18] VITALS: O2SAT 94
[2019-04-02 08:02] VITALS: BP 151/76; PULSE 63
--- NOTE | 2019-04-02 09:00 | PCM.SSS ---
History of Present Illness - Chief Complaint Chief Complaint: CP r/o History of Present Illness: is a 74 year old female who has had 2 episodes of chest pain following a meal in the last several days, she has no cardiac history. Has been under a great deal of stress trying to care for her grandson. - Review of Systems Constitutional: No Fever, No Chills Respiratory: No Cough, No Short Of Breath Cardiac: Chest Pain Abdominal/Gastrointestinal: No Abdominal Pain, No Nausea, No Vomiting, No Diarrhea Skin: No Rash Neurological: No Dizziness, No Focal Weakness, No Sensory Changes All Other Systems: Reviewed and Negative Medications & Allergies Home Medications: Home Medication List Ropinirole HCl 1 mg PO QHS 03/14/17 [History Confirmed 04/01/19] Simvastatin 20Mg [Zocor 20Mg] 20 mg PO DAILY 03/14/17 [History Confirmed ] Aspirin 81 mg PO DAILY 08/13/17 [History Confirmed 04/01/19] Famotidine 20 mg [Pepcid 20 MG] 20 mg PO BID #60 tablet 04/02/19 [Rx] Allergies/Adverse Reactions: Allergies Allergy/AdvReac Type Severity Reaction Status Date / Time No Known Drug Allergies Allergy Verified 04/01/19 20:24 - Past Medical History Past Medical History: Yes Neurological History: No Pertinent History ENT History: No Pertinent History Cardiac History: High Cholesterol Respiratory History: No Pertinent History Endocrine Medical History: No Pertinent History Musculoskelatal History: Arthritis GI Medical History: GERD History: No Pertinent History Pyscho-Social History: No Pertinent History Reproductive Disorders: No Pertinent History Comment: Restless leg syndrome - Female History Are you now?: No - Past Surgical History Past Surgical History: Yes Neuro Surgical History: No Pertinent History Cardiac History: No Pertinent History Respiratory Surgery: No Pertinent History GI Surgical History: No Pertinent History Genitourinary Surgical Hx: No Pertinent History Musculskeletal Surgical Hx: Joint Replacement, Orthopedic Surgery Female Surgical History: Other Other Surgical History: Wrist surgery. Leg surgery. Bladder tie up. EGD - Social History Smoking Status: Never smoker Exposure to second hand smoke: Yes Alcohol: None Drug Use: none - Physical Exam Vital Signs: Vital Signs - 24 hr Temp Pulse Resp BP Pulse Ox 04/02/19 08:00 98.8 F 63 16 151/76 94 L 04/02/19 04:17 97.8 F 64 16 147/75 94 L 04/02/19 01:16 98.6 F 66 18 188/84 95 04/02/19 00:02 67 18 170/74 95 04/01/19 22:42 99 04/01/19 22:09 70 18 160/69 99 04/01/19 21:30 72 16 162/75 96 04/01/19 20:51 98 04/01/19 20:25 75 18 183/84 99 General Appearance: no apparent distress, alert Neurologic Exam: alert, oriented x 3, cooperative, normal mood/affect, nml cerebellar function, nml station & gait, sensation nml, No motor deficits Eye Exam: PERRL/EOMI, eyes nml inspection Respiratory Exam: normal breath sounds, lungs clear, No respiratory distress Cardiovascular Exam: regular rate/rhythm, normal heart sounds, normal peripheral pulses Gastrointestinal/Abdomen Exam: soft, normal bowel sounds, No tenderness, No mass Extremity Exam: normal inspection, normal range of motion, pelvis stable Skin Exam: normal color, warm, dry, No rash Results - Labs Lab/Micro Results: Lab Results-Last 24 Hours 04/01/19 04/01/19 04/01/19 Range/Units 20:50 20:50 20:50 WBC 6.7 (4.0-10.5) K/mm3 RBC 4.29 (4.1-5.4) M/mm3 Hgb 13.4 (12.0-16.0) gm/dl Hct 41.6 (35-47) % MCV 97.0 (78-100) fl MCH 31.2 (26-32) pg MCHC 32.2 (32-36) g/dl RDW 13.2 (11.5-14.0) % Plt Count 262 (150-450) K/mm3 MPV 11.1 H (6-9.5) fl Gran % 69.4 H (36.0-66.0) % Eos # (Auto) 0.16 (0-0.5) Absolute Lymphs (auto) 1.31 (1.0-4.6) Absolute Monos (auto) 0.55 (0.0-1.3) Lymphocytes % 19.6 L (24.0-44.0) % Monocytes % 8.2 (0.0-12.0) % Eosinophils % 2.4 (0.00-5.0) % Basophils % 0.4 (0.0-0.4) % Absolute Granulocytes 4.65 (1.4-6.9) Basophils # 0.03 (0-0.4) PT 10.9 (9.95-12.35) SECONDS INR 0.97 (0.8-3.0) APTT 33.8 (25.3-37.0) SECONDS Sodium 141 (137-145) mmol/L Potassium 3.9 (3.5-5.1) mmol/L Chloride 102 (98-107) mmol/L Carbon Dioxide 30 (22-30) mmol/L Anion Gap 13.5 (5-15) MEQ/L BUN 16 (7-17) mg/dL Creatinine 0.75 (0.52-1.04) mg/dL Estimated GFR > 60.0 ML/MIN Glucose 143 H (74-106) mg/dL Calcium 9.2 (8.4-10.2) mg/dL Total Bilirubin 0.40 (0.2-1.3) mg/dL AST 25 (14-36) U/L ALT 20 (0-35) U/L Alkaline Phosphatase 64 (38-126) U/L Troponin I (0.000-0.034) ng/mL NT-Pro-B Natriuret Pep 205 (0-1800) pg/mL Serum Total Protein 7.0 (6.3-8.2) g/dL Albumin 4.3 (3.5-5.0) g/dL Amylase (30-110) U/L Lipase (23-300) U/L 04/01/19 04/01/19 04/02/19 Range/Units 20:52 21:00 00:58 WBC (4.0-10.5) K/mm3 RBC (4.1-5.4) M/mm3 Hgb (12.0-16.0) gm/dl Hct (35-47) % MCV (78-100) fl MCH (26-32) pg MCHC (32-36) g/dl RDW (11.5-14.0) % Plt Count (150-450) K/mm3 MPV (6-9.5) fl Gran % (36.0-66.0) % Eos # (Auto) (0-0.5) Absolute Lymphs (auto) (1.0-4.6) Absolute Monos (auto) (0.0-1.3) Lymphocytes % (24.0-44.0) % Monocytes % (0.0-12.0) % Eosinophils % (0.00-5.0) % Basophils % (0.0-0.4) % Absolute Granulocytes (1.4-6.9) Basophils # (0-0.4) PT (9.95-12.35) SECONDS INR (0.8-3.0) APTT (25.3-37.0) SECONDS Sodium (137-145) mmol/L Potassium (3.5-5.1) mmol/L Chloride (98-107) mmol/L Carbon Dioxide (22-30) mmol/L Anion Gap (5-15) MEQ/L BUN (7-17) mg/dL Creatinine (0.52-1.04) mg/dL Estimated GFR ML/MIN Glucose (74-106) mg/dL Calcium (8.4-10.2) mg/dL Total Bilirubin (0.2-1.3) mg/dL AST (14-36) U/L ALT (0-35) U/L Alkaline Phosphatase (38-126) U/L Troponin I < 0.012 < 0.012 (0.000-0.034) ng/mL NT-Pro-B Natriuret Pep (0-1800) pg/mL Serum Total Protein (6.3-8.2) g/dL Albumin (3.5-5.0) g/dL Amylase 47 (30-110) U/L Lipase 214 (23-300) U/L 04/02/19 04/02/19 Range/Units 03:08 06:11 WBC (4.0-10.5) K/mm3 RBC (4.1-5.4) M/mm3 Hgb (12.0-16.0) gm/dl Hct (35-47) % MCV (78-100) fl MCH (26-32) pg MCHC (32-36) g/dl RDW (11.5-14.0) % Plt Count (150-450) K/mm3 MPV (6-9.5) fl Gran % (36.0-66.0) % Eos # (Auto) (0-0.5) Absolute Lymphs (auto) (1.0-4.6) Absolute Monos (auto) (0.0-1.3) Lymphocytes % (24.0-44.0) % Monocytes % (0.0-12.0) % Eosinophils % (0.00-5.0) % Basophils % (0.0-0.4) % Absolute Granulocytes (1.4-6.9) Basophils # (0-0.4) PT (9.95-12.35) SECONDS INR (0.8-3.0) APTT (25.3-37.0) SECONDS Sodium (137-145) mmol/L Potassium (3.5-5.1) mmol/L Chloride (98-107) mmol/L Carbon Dioxide (22-30) mmol/L Anion Gap (5-15) MEQ/L BUN (7-17) mg/dL Creatinine (0.52-1.04) mg/dL Estimated GFR ML/MIN Glucose (74-106) mg/dL Calcium (8.4-10.2) mg/dL Total Bilirubin (0.2-1.3) mg/dL AST (14-36) U/L ALT (0-35) U/L Alkaline Phosphatase (38-126) U/L Troponin I < 0.012 < 0.012 (0.000-0.034) ng/mL NT-Pro-B Natriuret Pep (0-1800) pg/mL Serum Total Protein (6.3-8.2) g/dL Albumin (3.5-5.0) g/dL Amylase (30-110) U/L Lipase (23-300) U/L - Radiology Impressions Radiology Exams & Impressions: Radiology Procedures Category Date Time Status CHEST 1 VIEW (PORTABLE) Stat Exams 04/01/19 22:02 Taken Assessment/Plan (1) Chest pain Current Visit: Yes Status: Acute Qualifiers: Chest pain type: unspecified Qualified Code(s): R07.9 - Chest pain, unspecified Assessment & Plan: UT ruled out, likely GI. will send on pepcid Code(s): R07.9 - CHEST PAIN, UNSPECIFIED Hospital Summary - Vitals & Intake/Output Vital Signs: Vital Signs Temperature 98.8 F 04/02/19 08:00 Pulse Rate 63 04/02/19 08:00 Respiratory Rate 16 04/02/19 08:00 Blood Pressure 151/76 04/02/19 08:00 O2 Sat by Pulse Oximetry 94 L 04/02/19 08:00 Intake & Output: Intake & Output 03/30/19 03/31/19 04/01/19 04/02/19 11:59 11:59 11:59 11:59 Intake Total 306 Output Total 400 Balance -94 Weight 80.5 kg - Lab Result Diagrams: 04/01/19 20:50 04/01/19 20:50 Lab Results-Last 24 Hrs: Lab Results-Last 24 Hours 04/01/19 04/01/19 04/01/19 Range/Units 20:50 20:50 20:50 WBC 6.7 (4.0-10.5) K/mm3 RBC 4.29 (4.1-5.4) M/mm3 Hgb 13.4 (12.0-16.0) gm/dl Hct 41.6 (35-47) % MCV 97.0 (78-100) fl MCH 31.2 (26-32) pg MCHC 32.2 (32-36) g/dl RDW 13.2 (11.5-14.0) % Plt Count 262 (150-450) K/mm3 MPV 11.1 H (6-9.5) fl Gran % 69.4 H (36.0-66.0) % Eos # (Auto) 0.16 (0-0.5) Absolute Lymphs (auto) 1.31 (1.0-4.6) Absolute Monos (auto) 0.55 (0.0-1.3) Lymphocytes % 19.6 L (24.0-44.0) % Monocytes % 8.2 (0.0-12.0) % Eosinophils % 2.4 (0.00-5.0) % Basophils % 0.4 (0.0-0.4) % Absolute Granulocytes 4.65 (1.4-6.9) Basophils # 0.03 (0-0.4) PT 10.9 (9.95-12.35) SECONDS INR 0.97 (0.8-3.0) APTT 33.8 (25.3-37.0) SECONDS Sodium 141 (137-145) mmol/L Potassium 3.9 (3.5-5.1) mmol/L Chloride 102 (98-107) mmol/L Carbon Dioxide 30 (22-30) mmol/L Anion Gap 13.5 (5-15) MEQ/L BUN 16 (7-17) mg/dL Creatinine 0.75 (0.52-1.04) mg/dL Estimated GFR > 60.0 ML/MIN Glucose 143 H (74-106) mg/dL Calcium 9.2 (8.4-10.2) mg/dL Total Bilirubin 0.40 (0.2-1.3) mg/dL AST 25 (14-36) U/L ALT 20 (0-35) U/L Alkaline Phosphatase 64 (38-126) U/L Troponin I (0.000-0.034) ng/mL NT-Pro-B Natriuret Pep 205 (0-1800) pg/mL Serum Total Protein 7.0 (6.3-8.2) g/dL Albumin 4.3 (3.5-5.0) g/dL Amylase (30-110) U/L Lipase (23-300) U/L 04/01/19 04/01/19 04/02/19 Range/Units 20:52 21:00 00:58 WBC (4.0-10.5) K/mm3 RBC (4.1-5.4) M/mm3 Hgb (12.0-16.0) gm/dl Hct (35-47) % MCV (78-100) fl MCH (26-32) pg MCHC (32-36) g/dl RDW (11.5-14.0) % Plt Count (150-450) K/mm3 MPV (6-9.5) fl Gran % (36.0-66.0) % Eos # (Auto) (0-0.5) Absolute Lymphs (auto) (1.0-4.6) Absolute Monos (auto) (0.0-1.3) Lymphocytes % (24.0-44.0) % Monocytes % (0.0-12.0) % Eosinophils % (0.00-5.0) % Basophils % (0.0-0.4) % Absolute Granulocytes (1.4-6.9) Basophils # (0-0.4) PT (9.95-12.35) SECONDS INR (0.8-3.0) APTT (25.3-37.0) SECONDS Sodium (137-145) mmol/L Potassium (3.5-5.1) mmol/L Chloride (98-107) mmol/L Carbon Dioxide (22-30) mmol/L Anion Gap (5-15) MEQ/L BUN (7-17) mg/dL Creatinine (0.52-1.04) mg/dL Estimated GFR ML/MIN Glucose (74-106) mg/dL Calcium (8.4-10.2) mg/dL Total Bilirubin (0.2-1.3) mg/dL AST (14-36) U/L ALT (0-35) U/L Alkaline Phosphatase (38-126) U/L Troponin I < 0.012 < 0.012 (0.000-0.034) ng/mL NT-Pro-B Natriuret Pep (0-1800) pg/mL Serum Total Protein (6.3-8.2) g/dL Albumin (3.5-5.0) g/dL Amylase 47 (30-110) U/L Lipase 214 (23-300) U/L 04/02/19 04/02/19 Range/Units 03:08 06:11 WBC (4.0-10.5) K/mm3 RBC (4.1-5.4) M/mm3 Hgb (12.0-16.0) gm/dl Hct (35-47) % MCV (78-100) fl MCH (26-32) pg MCHC (32-36) g/dl RDW (11.5-14.0) % Plt Count (150-450) K/mm3 MPV (6-9.5) fl Gran % (36.0-66.0) % Eos # (Auto) (0-0.5) Absolute Lymphs (auto) (1.0-4.6) Absolute Monos (auto) (0.0-1.3) Lymphocytes % (24.0-44.0) % Monocytes % (0.0-12.0) % Eosinophils % (0.00-5.0) % Basophils % (0.0-0.4) % Absolute Granulocytes (1.4-6.9) Basophils # (0-0.4) PT (9.95-12.35) SECONDS INR (0.8-3.0) APTT (25.3-37.0) SECONDS Sodium (137-145) mmol/L Potassium (3.5-5.1) mmol/L Chloride (98-107) mmol/L Carbon Dioxide (22-30) mmol/L Anion Gap (5-15) MEQ/L BUN (7-17) mg/dL Creatinine (0.52-1.04) mg/dL Estimated GFR ML/MIN Glucose (74-106) mg/dL Calcium (8.4-10.2) mg/dL Total Bilirubin (0.2-1.3) mg/dL AST (14-36) U/L ALT (0-35) U/L Alkaline Phosphatase (38-126) U/L Troponin I < 0.012 < 0.012 (0.000-0.034) ng/mL NT-Pro-B Natriuret Pep (0-1800) pg/mL Serum Total Protein (6.3-8.2) g/dL Albumin (3.5-5.0) g/dL Amylase (30-110) U/L Lipase (23-300) U/L - Radiology Exams Ordered Rad Exams-Entire Visit: Radiology Procedures Category Date Time Status CHEST 1 VIEW (PORTABLE) Stat Exams 04/01/19 22:02 Taken - Procedures and Test Procedures and Tests throughout Hospitalization: Therapy Orders & Screens 04/02/19 04:21 EKG ONCE Comment: Diagnosis: Acute Chest Pain - Discharge Disposition: Home, Self-Care Condition: Good Prescriptions: New Famotidine 20 mg [Pepcid 20 MG] 20 mg PO BID #60 tablet Continue Simvastatin 20Mg [Zocor 20Mg] 20 mg PO DAILY Ropinirole HCl 1 mg PO QHS Aspirin 81 mg PO DAILY Follow up with: MARIELOS MCCORD MD [Primary Care Provider] - 1 Week
[2019-04-02] MEDS ORDERED: ZOCOR 20MG PO SCH (10:00)
[2019-04-02] MEDS ORDERED: NON-FORMULARY ITEM (Aspirin [Aspirin] 81 MG) PO SCH (10:00)
[2019-04-02] MEDS ORDERED: ECOTRIN 81 MG PO SCH (10:00)
[2019-04-02] MEDS ORDERED: ENOXAPARIN SODIUM SQ SCH (10:00)
[2019-04-02] MEDS ORDERED: Pepcid 20 MG PO SCH (10:00)
--- NOTE | 2019-04-02 10:23 | XRAY ---
Indication: Chest pain. Comparison: August 10, 2017. Portable chest remains hyperinflated and clear. Heart is not enlarged with enlarging large hiatal hernia. Stable hilar calcified nodes. Bony thorax intact again with mild degenerative changes. Impression: Nonacute chest with chronic features.
[2019-04-02] MEDS ORDERED: Requip 0.5 MG PO SCH (22:00)
[2019-04-02] MEDS ORDERED: NON-FORMULARY ITEM (Ropinirole Hcl [Ropinirole Hcl] 1 MG) PO SCH (22:00)
== END 2019-04-02 10:34 | disposition home or self-care (01) ==
LOC: ED 20:15 → MED SURG 04-02 00:31
PROVIDERS: ADMIT Family Medicine; ATTEND Family Medicine
DX: R07.9 Chest pain, unspecified (principal); E78.00 Pure hypercholesterolemia, unspecified; G25.81 Restless legs syndrome; K21.9 Gastro-esophageal reflux disease without esophagitis; Z79.899 Other long term (current) drug therapy
CPT/HCPCS: 36000; 36415; 71045; 80053; 82150; 83690; 83880; 84484; 85025; 85610; 85730; 93005; 93041; 93268; 94760; 96360; 99284; 99285; A9270-GY; G0378

== ENCOUNTER 2019-08-21 02:00 | Emergency (ER) | payer MEDICARE, OTHER ==
[2019-08-21] MEDS ORDERED: Zofran 4 MG/2 ML VIAL ONE (02:30)
[2019-08-21] MEDS ORDERED: MORPHINE SULFATE 2 MG INJ IV ONE ×2 (02:31→03:15)
[2019-08-21] MEDS ORDERED: Zofran 4 MG/2 ML VIAL IV ONE (02:31)
[2019-08-21] MEDS ORDERED: BABY ASPIRIN 81 MG CHEW PO ONE (02:31)
--- NOTE | 2019-08-21 02:31 | ERPHSYRPT ---
- History of Present Illness Time Seen by Provider: 08/21/19 02:15 Historian: patient Exam Limitations: no limitations Patient Subjective Stated Complaint: pt states she has been having epiesodes of chest pain in the evenings for a month or more. states she began having chest pain at approx 1900 and has not been able to get comfortable since. describes pain as pressure 7/10 and radiates to lt shoulder and to back. Triage Nursing Assessment: pt alert and oreinted, answers questions approp. pt ambulatory with steady gait noted. respirations nonlabored with lungs cta. skin pink warm and dry. heart rate 74 sinus rhythm on monitor. Physician History: This is a 74-year-old female who presents with intermittent left anterior chest pain described as sharpness that radiates into her left shoulder and left side of her neck for approximately 2 to 3 months. Episodes usually last about 4 hours and then subside. However, this last episode began at 7:00 PM and has lasted for 7-1/2 hours. Patient has been seen by her primary care physician, Dr. Mccord, who has been performing a cardiac work-up including a recent exercise stress test. That was performed on July 12, 2019. The results reveal no evidence of any ischemic changes and patient has a cardiac ejection fraction of 70%. Patient states there is associated "sour taste" in her mouth and burning substernally in the midline. Patient took a single nitroglycerin without benefit this morning and took 1 baby aspirin. Additionally, patient arrives nauseated and has elevated blood pressure. Patient has an appointment with a live source operator on September 01, 2019 Timing/Duration: intermittent, worse, other (intermittently over 2 to 3 months) Quality: burning, sharpness Location: other (left ant chest) Chest Pain Radiation: neck (left), arm (left) Severity of Pain-Max: moderate Severity of Pain-Current: moderate Modifying Factors: Improves With: nitroglycerin, aspirin Associated Symptoms: nausea, vomiting, heartburn Prior Chest Pain/Cardiac Workup: stress test, recently seen/treated Nitro Today/Relief: 0.4 mg x 1, provided at home, no relief Aspirin Treatment Today: 81 mg x 1, provided at home Allergies/Adverse Reactions: No Known Drug Allergies Allergy (Verified 08/21/19 02:30) Home Medications: Ropinirole HCl 1 mg PO QHS 03/14/17 [History] Simvastatin 20Mg [Zocor 20Mg] 20 mg PO DAILY 03/14/17 [History] Aspirin 81 mg PO DAILY 08/13/17 [History] Nitroglycerin 0.4 mg Tablet [Nitrostat 0.4 MG Tablet] 0.4 mg SL UD [History] Omeprazole Magnesium [Prilosec Otc] 20 mg PO HS 08/21/19 [History] Hx Tetanus, Diphtheria Vaccination/Date Given: Yes (UNKNOWN) Hx Influenza Vaccination/Date Given: Yes Hx Pneumococcal Vaccination/Date Given: No Immunizations Up to Date: Yes - Past Medical History Pertinent Past Medical History: Yes Neurological History: No Pertinent History ENT History: No Pertinent History Cardiac History: High Cholesterol Respiratory History: No Pertinent History Endocrine Medical History: No Pertinent History Musculoskeletal History: Arthritis GI Medical History: GERD History: No Pertinent History Psycho-Social History: No Pertinent History Female Reproductive Disorders: No Pertinent History Other Medical History: Restless leg syndrome. has frequent episodes of chest apin for last month - Past Surgical History Past Surgical History: Yes Neuro Surgical History: No Pertinent History Cardiac: No Pertinent History Respiratory: No Pertinent History Gastrointestinal: No Pertinent History Genitourinary: No Pertinent History Musculoskeletal: Joint Replacement, Orthopedic Surgery Female Surgical History: Other Other Surgical History: Wrist surgery. Leg surgery. Bladder tie up. EGD - Social History Smoking Status: Never smoker Exposure to second hand smoke: Yes Drug Use: none Patient Lives Alone: No - Nursing Vital Signs Nursing Vital Signs: Initial Vital Signs Temperature 96.5 F 08/21/19 02:02 Pulse Rate 74 08/21/19 02:02 Respiratory Rate 18 08/21/19 02:02 Blood Pressure 204/100 08/21/19 02:02 O2 Sat by Pulse Oximetry 97 08/21/19 02:02 Pain Scale Pain Intensity 2 - Physical Exam SpO2: 97 - Course Nursing assessment & vital signs reviewed: Yes EKG Interpreted by Me: RATE (73), Sinus Rhythm, NORMAL AXIS, NORMAL INTERVALS, NORMAL QRS, Non-specific ST Changes, Other (When compared to a prior EKG dated April 02, 2019, patient has persistent normal sinus rhythm, new normal axis and new nonspecific ST segment changes.) Ordered Tests: Active Orders 24 hr Category Date Time Status Floor Layer Helper STAT Care 08/21/19 02:32 Active EKG-ER Only STAT Care 08/21/19 02:31 Active IV Insertion STAT Care 08/21/19 02:31 Active Pulse Oximetry (ED) STAT Care 08/21/19 02:31 Active CHEST 1 VIEW (PORTABLE) Stat Exams 08/21/19 02:32 Taken CHEST WITH CONTRAST [CT] Stat Exams 08/21/19 03:22 Taken CBC W DIFF Stat Lab 08/21/19 02:36 Completed CMP Stat Lab 08/21/19 02:36 Completed D-DIMER QUANTITATIVE Stat Lab 08/21/19 02:36 Completed NT PRO BNP Stat Lab 08/21/19 02:36 Completed PROTIME WITH INR Stat Lab 08/21/19 02:36 Completed TROPONIN Q3H Lab 08/21/19 02:36 Completed TROPONIN Q3H Lab 08/21/19 05:44 Completed TROPONIN Q3H Lab 08/21/19 08:45 Ordered TROPONIN Q3H Lab 08/21/19 11:45 Ordered TROPONIN Q3H Lab 08/21/19 14:45 Ordered Medication Summary Generic Name Dose Route Start Last Admin Trade Name Freq PRN Reason Stop Dose Admin Sodium Chloride 1,000 mls @ 50 mls/hr 08/21/19 02:45 08/21/19 02:43 Sodium Chloride 0.9% 1000 Ml IV 09/20/19 02:44 50 mls/hr .Q20H KELTON Administration Discontinued Medications Generic Name Dose Route Start Last Admin Trade Name Freq PRN Reason Stop Dose Admin Aspirin 243 mg 08/21/19 02:31 08/21/19 02:44 Baby Aspirin 81 Mg Chew PO 08/21/19 02:32 243 mg STAT ONE Administration Enalaprilat 0.625 mg 08/21/19 04:44 08/21/19 04:53 Vasotec I.V. 2.5 Mg IV 08/21/19 04:45 0.625 mg STAT ONE Administration Enalaprilat 0.625 mg 08/21/19 04:45 Vasotec I.V. 2.5 Mg IV 08/21/19 04:46 STAT ONE Enalaprilat Confirm 08/21/19 04:49 Vasotec I.V. 2.5 Mg Administered 08/21/19 04:50 Dose 2.5 mg IV .STK-MED ONE Morphine Sulfate 2 mg 08/21/19 02:31 08/21/19 02:44 Morphine Sulfate 2 Mg Inj IV 08/21/19 02:32 2 mg STAT ONE Administration Morphine Sulfate Confirm 08/21/19 02:34 Morphine Sulfate 2 Mg Inj Administered 08/21/19 02:35 Dose 2 mg .ROUTE .STK-MED ONE Morphine Sulfate Confirm 08/21/19 03:14 Morphine Sulfate 2 Mg Inj Administered 08/21/19 03:15 Dose 2 mg .ROUTE .STK-MED ONE Morphine Sulfate 2 mg 08/21/19 03:15 08/21/19 03:20 Morphine Sulfate 2 Mg Inj IV 08/21/19 03:16 2 mg STAT ONE Administration Nitroglycerin 0.4 mg 08/21/19 03:20 08/21/19 03:21 Nitrostat 0.4 Mg (Ed) SL 08/21/19 03:21 0.4 mg STAT ONE Administration Ondansetron HCl Confirm 08/21/19 02:30 Zofran 4 Mg/2 Ml Vial Administered 08/21/19 02:31 Dose 4 mg .ROUTE .STK-MED ONE Ondansetron HCl 4 mg 08/21/19 02:31 08/21/19 02:44 Zofran 4 Mg/2 Ml Vial IV 08/21/19 02:32 4 mg STAT ONE Administration Pantoprazole Sodium 40 mg 08/21/19 02:33 08/21/19 02:45 Protonix 40 Mg Iv IV 08/21/19 02:34 40 mg STAT ONE Administration Pantoprazole Sodium Confirm 08/21/19 02:34 Protonix 40 Mg Iv Administered 08/21/19 02:35 Dose 40 mg IV .STK-MED ONE Lab/Rad Data: Laboratory Result Diagrams 08/21/19 02:36 08/21/19 02:36 Laboratory Results 08/21/19 08/21/19 08/21/19 Range/Units 05:44 02:36 02:36 WBC (4.0-10.5) K/mm3 RBC (4.1-5.4) M/mm3 Hgb (12.0-16.0) gm/dl Hct (35-47) % MCV (78-100) fl MCH (26-32) pg MCHC (32-36) g/dl RDW (11.5-14.0) % Plt Count (150-450) K/mm3 MPV (7.5-11.0) fl Gran % (36.0-66.0) % Eos # (Auto) (0-0.5) Absolute Lymphs (auto) (1.0-4.6) Absolute Monos (auto) (0.0-1.3) Lymphocytes % (24.0-44.0) % Monocytes % (0.0-12.0) % Eosinophils % (0.00-5.0) % Basophils % (0.0-0.4) % Absolute Granulocytes (1.4-6.9) Basophils # (0-0.4) PT 10.6 (9.95-12.35) SECONDS INR 0.94 (0.8-3.0) D-Dimer 865 H* (215-500) ng/mL Sodium (137-145) mmol/L Potassium (3.5-5.1) mmol/L Chloride (98-107) mmol/L Carbon Dioxide (22-30) mmol/L Anion Gap (5-15) MEQ/L BUN (7-17) mg/dL Creatinine (0.52-1.04) mg/dL Estimated GFR ML/MIN Glucose (74-106) mg/dL Calcium (8.4-10.2) mg/dL Total Bilirubin (0.2-1.3) mg/dL AST (14-36) U/L ALT (0-35) U/L Alkaline Phosphatase (38-126) U/L Troponin I < 0.012 < 0.012 (0.000-0.034) ng/mL NT-Pro-B Natriuret Pep (0-1800) pg/mL Serum Total Protein (6.3-8.2) g/dL Albumin (3.5-5.0) g/dL 20 08/21/19 Range/Units 02:36 02:36 WBC 9.1 (4.0-10.5) K/mm3 RBC 4.32 (4.1-5.4) M/mm3 Hgb 13.3 (12.0-16.0) gm/dl Hct 41.3 (35-47) % MCV 95.6 (78-100) fl MCH 30.8 (26-32) pg MCHC 32.2 (32-36) g/dl RDW 12.5 (11.5-14.0) % Plt Count 283 (150-450) K/mm3 MPV 11.0 (7.5-11.0) fl Gran % 73.5 H (36.0-66.0) % Eos # (Auto) 0.05 (0-0.5) Absolute Lymphs (auto) 1.57 (1.0-4.6) Absolute Monos (auto) 0.77 (0.0-1.3) Lymphocytes % 17.2 L (24.0-44.0) % Monocytes % 8.4 (0.0-12.0) % Eosinophils % 0.5 (0.00-5.0) % Basophils % 0.4 (0.0-0.4) % Absolute Granulocytes 6.69 (1.4-6.9) Basophils # 0.04 (0-0.4) PT (9.95-12.35) SECONDS INR (0.8-3.0) D-Dimer (215-500) ng/mL Sodium 139 (137-145) mmol/L Potassium 3.9 (3.5-5.1) mmol/L Chloride 101 (98-107) mmol/L Carbon Dioxide 30 (22-30) mmol/L Anion Gap 12.7 (5-15) MEQ/L BUN 12 (7-17) mg/dL Creatinine 0.63 (0.52-1.04) mg/dL Estimated GFR > 60.0 ML/MIN Glucose 116 H (74-106) mg/dL Calcium 9.1 (8.4-10.2) mg/dL Total Bilirubin 0.60 (0.2-1.3) mg/dL AST 26 (14-36) U/L ALT 18 (0-35) U/L Alkaline Phosphatase 82 (38-126) U/L Troponin I (0.000-0.034) ng/mL NT-Pro-B Natriuret Pep 249 (0-1800) pg/mL Serum Total Protein 7.8 (6.3-8.2) g/dL Albumin 4.6 (3.5-5.0) g/dL - Progress Progress: improved, re-examined Air Movement: good Progress Note: 08/21/19 02:40 The differential diagnosis includes myocardial infarction, pulmonary embolus, congestive heart failure, pneumonia, gastroesophageal reflux disease, peptic ulcer disease 08/21/19 06:19 CAT scan of the chest with contrast reveals no pulmonary embolus. Patient has a large paraesophageal hernia. Compared to a chest x-ray performed on March 2019 reveals this hernia to be a bit larger. Patient has no significant chest pain at this time. Blood Culture(s) Obtained: No Antibiotics given: No Counseled pt/family regarding: lab results, diagnosis, need for follow-up, rad results - Departure Departure Disposition: Home Clinical Impression: Paraesophageal hiatal hernia, Chest pain Condition: Stable Critical Care Time: No Referrals: MARIELOS MCCORD MD [Primary Care Provider] - Additional Instructions: Follow-up with your primary care doctor on Friday to discuss your symptoms. In addition, you need to discuss the issue of your paraesophageal hernia. This may be the cause of your chest pain and symptoms. Keep your appointment with your live source operator as scheduled.
[2019-08-21] MEDS ORDERED: PROTONIX 40 MG IV IV ONE ×2 (02:33→02:34)
[2019-08-21] MEDS ORDERED: MORPHINE SULFATE 2 MG INJ ONE ×2 (02:34→03:14)
[2019-08-21] MEDS ORDERED: Sodium Chloride 0.9% 1000 ML 1,000 ML ONE (02:35)
[2019-08-21 02:41] LABS: Absolute Neutrophil Ct (ANC) 6.69 (1.4-6.9); BASOPHIL % 0.4 % (0.0-0.4); Basophil (Absolute #) 0.04 (0-0.4); Eosinophil % 0.5 % (0.00-5.0); Eosinophil (Absolute #) 0.05 (0-0.5); Hematocrit 41.3 % (35-47); Hemoglobin 13.3 gm/dl (12.0-16.0); Lymphocyte (Absolute #) 1.57 (1.0-4.6); Lymphocytes % 17.2 % (24.0-44.0); Mean Cell Volume 95.6 fl (78-100); Mean Corpuscular Hemoglobin 30.8 pg (26-32); Mean Corpuscular Hgb Concent. 32.2 g/dl (32-36); Monocyte (Absolute #) 0.77 (0.0-1.3); Monocytes % 8.4 % (0.0-12.0); Neutrophil % 73.5 % (36.0-66.0); Platelet Count 283 K/mm3 (150-450); Red Blood Count 4.32 M/mm3 (4.1-5.4); Red Cell Distribution Width 12.5 % (11.5-14.0); White Blood Count 9.1 K/mm3 (4.0-10.5)
[2019-08-21 02:42] LABS: INR 0.94 (0.8-3.0); PROTIME 10.6 SECONDS (9.95-12.35)
[2019-08-21] MEDS ORDERED: Sodium Chloride 0.9% 1000 ML 1,000 ML IV SCH (02:45)
[2019-08-21 02:55] LABS: ALBUMIN 4.6 g/dL (3.5-5.0); ALKALINE PHOSPHATASE 82 U/L (38-126); ANION GAP 12.7 MEQ/L (5-15); BLOOD UREA NITROGEN 12 mg/dL (7-17); CHLORIDE 101 mmol/L (98-107); Calcium 9.1 mg/dL (8.4-10.2); Carbon Dioxide 30 mmol/L (22-30); Creatinine 1 0.63 mg/dL (0.52-1.04); Glucose 116 mg/dL (74-106); NT PRO BNP 249 pg/mL (0-1800); Potassium 3.9 mmol/L (3.5-5.1); SGOT/AST 26 U/L (14-36); SGPT/ALT 18 U/L (0-35); SODIUM 139 mmol/L (137-145); Total Protein 7.8 g/dL (6.3-8.2)
[2019-08-21] MEDS ORDERED: Nitrostat 0.4 MG (ED) SL ONE (03:20)
[2019-08-21] MEDS ORDERED: VASOTEC I.V. 2.5 MG IV ONE ×3 (04:44→04:49)
[2019-08-21 06:53] VITALS: PULSE 65; O2SAT 95
[2019-08-21 07:06] VITALS: BP 174/95
--- NOTE | 2019-08-21 07:16 | XRAY ---
Indication: Left chest pain. Elevated d-dimer. Multiple contiguous axial images obtained through the chest using 80 cc Isovue 370 contrast and PE protocol. Comparison: April 29, 2010. There is good opacification of the pulmonary arteries to include the lobar and segmental branches. No filling defect or pulmonary embolus. Heart is now enlarged. Aorta normal in course and caliber with minimal scattered arteriosclerotic calcifications. No aneurysm/dissection. Stable right suprahilar calcified nodes. No pathologic mediastinal/hilar lymphadenopathy. Enlarging very large hiatal hernia with fluid distended partial intrathoracic stomach. Lungs demonstrate mild bilateral lower lobe compressive atelectasis secondary to hiatal hernia. No suspicious pulmonary mass, infiltrate, or effusion. Bony thorax intact again with mild osteopenia and moderate dextrorotoscoliosis. Limited upper abdomen again demonstrates mild fatty liver and 7 mm right lobe hepatic cyst. Impression: 1. Again negative for pulmonary embolus. 2. New cardiomegaly and enlarging very large hiatal hernia with partial intrathoracic stomach. 3. Stable fatty liver, hepatic cyst, right hilar calcified nodes, and chronic bony findings. Comment: Preliminary interpretation was made by [facility]. No critical discrepancy.
--- NOTE | 2019-08-21 07:18 | XRAY ---
Indication: Chest pain with nausea. Comparison: April 01, 2019. Portable chest remains clear. Heart is not enlarged again with large hiatal hernia. Bony thorax intact again with mild osteopenia, mild dextroscoliosis, and old right 7 rib fracture. Impression: Stable nonacute chest with chronic features.
== END 2019-08-21 07:04 | disposition home or self-care (01) ==
LOC: ED 02:00
DX: K44.9 Diaphragmatic hernia without obstruction or gangrene (principal); R07.89 Other chest pain; R11.2 Nausea with vomiting, unspecified; R12 Heartburn; Z79.899 Other long term (current) drug therapy; E78.00 Pure hypercholesterolemia, unspecified
CPT/HCPCS: 36000; 36415; 71045; 71260; 80053; 83880; 84484; 85025; 85379; 85610; 93005; 93041; 94760; 96374; 96375; 96376; 99285; J2270; J2405; A9270-GY

== ENCOUNTER 2020-01-17 08:35 | Day surgery (SDC) | payer MEDICARE, OTHER ==
--- NOTE | 2020-01-14 11:19 | HP ---
DATE OF SURGERY: 01/17/2020 HISTORY OF PRESENT ILLNESS: The patient is a 74 year old with history of some epigastric pain radiating up to her chest. She has history of hiatal hernia, slight nausea, vomiting. PAST MEDICAL HISTORY: Hypertension, hyperlipidemia, some reflux, restless leg syndrome. PAST SURGICAL HISTORY: Endoscopy in the past. MEDICATIONS: Simvastatin, carvedilol, ropinirole, pantoprazole, Prilosec, aspirin. ALLERGIES: NKDA. FAMILY HISTORY: Diabetes. Leukemia. Pancreatic cancer. SOCIAL HISTORY: No smoking or alcohol abuse. REVIEW OF SYSTEMS: Fourteen systems reviewed. No chest pain or palpitations. Other systems negative or noncontributory as above and per preadmission questionnaire. PHYSICAL EXAMINATION: GENERAL: No acute distress. HEENT: Sclerae nonicteric. NECK: No JVD. CHEST: Equal excursion, nonlabored breathing. CVS: Regular rate and rhythm. ABDOMEN: Soft. No peritoneal signs. EXTREMITIES: No significant edema. She has history of left shoulder aching all the time. NEURO: Alert, oriented, moving extremities symmetrically. No gross motor deficits noted. PSYCH: Appropriate mood and affect. IMPRESSION: Increasingly symptomatic upper abdominal aches radiating to the chest, history of large hiatal hernia. Whether her symptoms are related to that or hiatal hernia is causing more problems or she has got esophagitis, gastritis, peptic ulcer disease. However, she has no new changes of her chronic hiatal hernia and this is more of a biliary-type pain is unclear. Gallbladder ultrasound for further evaluation and also I feel she needs EGD possible biopsy as an outpatient. Risks and benefits explained in detail including but not limited to bleeding or infection, risk of bowel injury or perforation possibly requiring open procedure, risk of missed or nondiagnosis or incomplete exam possibly requiring barium swallow, other studies or procedures, general risk of anesthesia or sedation but not limited to, consent obtained. The patient agrees with the plan, will proceed with EGD with possible biopsy as an outpatient. Will schedule gallbladder ultrasound to re-evaluate and discuss the results afterwards. General risk of bowel injury, perforation, risk of bleeding or infection, risk of sedation but not limited to, consent obtained. Will proceed with EGD possible biopsy as an outpatient.
[~2020-01-17 08:35] MED LIST: DIPRIVAN 200 MG/20 ML IV ONE; Lactated Ringers 1,000 ML IV SCH
[2020-01-17] MEDS ORDERED: Lactated Ringers 1,000 ML IV ONE (08:49)
[2020-01-17 11:39] VITALS: O2SAT 95
[2020-01-17 11:41] VITALS: BP 172/90
[2020-01-17 11:56] VITALS: PULSE 65
--- NOTE | 2020-01-18 07:45 | OP ---
SURGERY DATE/TIME: 01/17/2020 1032 PREOPERATIVE DIAGNOSIS: History of hiatal hernia, history of epigastric pain, need for upper endoscopy. POSTOPERATIVE DIAGNOSES: 1) History of hiatal hernia. 2) Minimal gastritis. PROCEDURES: 1) EGD with cold biopsy of antrum to evaluate for Helicobacter pylori. 2) Cold biopsy of small bowel to evaluate for celiac sprue. SURGEON: Dr. Sanket Norton. ANESTHESIA: MAC. ESTIMATED BLOOD LOSS: Minimal. INDICATIONS: As noted above. Risks and benefits explained in detail and not limited to and consent obtained. DESCRIPTION OF PROCEDURE AND FINDINGS: The patient is taken to the operating room. MAC anesthesia induced. After official time out and no disagreement with planned procedure, bite block positioned. Video gastroscope easily passed down the esophagus. Gastroesophageal junction about 34 cm. The scope passed through the stomach through the patent pylorus to the junction of the second and third portion of the duodenum. Given her symptom complaints, cold biopsies taken of the small bowel to evaluate for celiac sprue. There are no signs of any obvious ulcers or masses in the first three portions of the duodenum. Cold biopsy taken. Good hemostasis noted. Scope pulled back in the stomach. She had some mild erythema and possibly some minimal gastritis. Cold biopsy taken to evaluate for Helicobacter pylori. Good hemostasis noted. The scope was then pulled back. On retroflex no signs of any obvious ulcers or masses. There was a little bit of weakness at the gastroesophageal junction. It was difficult. She had no hiatal hernia but how much of the stomach was growing up with this was hard to tell endoscopy. Scope straightened. Gastroesophageal junction 40 cm. Z-line was crisp. No signs of any melony Morrissey's. No signs of any obvious erosive esophagitis. Esophageal mucosa grossly unremarkable. Scope withdrawn. The patient tolerated the procedure well. There was no family here available to discuss the findings with. If they have question I can be paged.
== END 2020-01-17 11:55 | disposition home or self-care (01) ==
LOC: SDC 08:35
PROVIDERS: ATTEND Surgery
DX: K29.70 Gastritis, unspecified, without bleeding (principal); Z87.19 Personal history of other diseases of the digestive system; I10 Essential (primary) hypertension; E78.5 Hyperlipidemia, unspecified; Z79.899 Other long term (current) drug therapy
CPT/HCPCS: 87081; 88305; 99100; J2704

== ENCOUNTER 2020-04-12 20:53 | Emergency (ER) | payer MEDICARE, OTHER ==
[2020-04-12 21:14] VITALS: O2SAT 98
--- NOTE | 2020-04-12 21:20 | ERPHSYRPT ---
- History of Present Illness Time Seen by Provider: 04/12/20 21:16 Historian: patient, family Exam Limitations: no limitations Patient Subjective Stated Complaint: PT STATES SHE TURNED HER CHAIR OVER WHILE SITTING IN IT AND HIT THE RT SIDE OF HER BACK AND RIBS ON THE BACK OF THE CHAIR. DENIES PAIN ANYWHERE ELSE Triage Nursing Assessment: PT ALERT AND ORIENTED, ANSWERS QUESTIONS APPROP. PT AMBULATORY WITH STEADY SLOW GAIT, RESPIRATIONS NONLABORED WITH LUNGS CTA. SKIN PINK WARM AND DRY. TENDERNESS NOTED TO RT POSTERIOR RIBS Timing/Duration: today, constant, sudden Activities at Onset: activity Quality: sharpness, stabbing Location: back Chest Pain Radiation: no radiation Severity of Pain-Max: moderate Severity of Pain-Current: moderate Modifying Factors: Improves With: coughing, movement, palpation Associated Symptoms: hurts to breathe Prior Chest Pain/Cardiac Workup: no prior chest pain (this is rib pain from a fall) Aspirin Treatment Today: no aspirin today Allergies/Adverse Reactions: hydrocodone Adverse Reaction (Mild, Verified 04/12/20 21:18) Nausea and Vomiting Home Medications: Ropinirole HCl 1 mg PO QHS 03/14/17 [History] Simvastatin 20Mg [Zocor 20Mg] 20 mg PO DAILY 03/14/17 [History] Nitroglycerin 0.4 mg Tablet [Nitrostat 0.4 MG Tablet] 0.4 mg SL UD 08/21/19 [History] Omeprazole Magnesium [Prilosec Otc] 40 mg PO HS 08/21/19 [History] Carvedilol 3.125 mg [Coreg 3.125 MG] 3.125 mg PO BID 01/07/20 [History] Pantoprazole Sodium 20 mg PO DAILY 01/07/20 [History] Hx Tetanus, Diphtheria Vaccination/Date Given: No Hx Influenza Vaccination/Date Given: No Hx Pneumococcal Vaccination/Date Given: No Immunizations Up to Date: No Travel Risk - International Travel Have you traveled outside of the country in past 3 weeks: No - Coronavirus Screening Are you exhibiting any of the following symptoms?: No Close contact with a COVID-19 positive Pt in past 14-21 Days: No - Review of Systems Constitutional: No Symptoms Eyes: No Symptoms Ears, Nose, & Throat: No Symptoms Respiratory: No Symptoms Cardiac: Other (right back rib pain) Abdominal/Gastrointestinal: No Symptoms Genitourinary Symptoms: No Symptoms Musculoskeletal: No Symptoms Skin: No Symptoms Neurological: No Symptoms Psychological: No Symptoms Endocrine: No Symptoms Hematologic/Lymphatic: No Symptoms Immunological/Allergic: No Symptoms All Other Systems: Reviewed and Negative - Past Medical History Pertinent Past Medical History: Yes Neurological History: No Pertinent History ENT History: No Pertinent History Cardiac History: Arrhythmia, High Cholesterol Respiratory History: No Pertinent History Endocrine Medical History: No Pertinent History Musculoskeletal History: Arthritis GI Medical History: GERD, Other History: No Pertinent History Psycho-Social History: No Pertinent History Female Reproductive Disorders: No Pertinent History Other Medical History: Hx of hiatal hernia- SURGERY MAR 07, Restless leg syndrome - Past Surgical History Past Surgical History: Yes Neuro Surgical History: No Pertinent History Cardiac: No Pertinent History Respiratory: No Pertinent History Gastrointestinal: No Pertinent History Genitourinary: No Pertinent History Musculoskeletal: Orthopedic Surgery Female Surgical History: Tubal Ligation Other Surgical History: L. Knee replacement, EGD "2 or 3 times". HIATAL HERNIA REPAIR ON MAR 07 - Social History Smoking Status: Never smoker Exposure to second hand smoke: Yes Drug Use: none Patient Lives Alone: No Significant Family History: no pertinent family hx - Nursing Vital Signs Nursing Vital Signs: Initial Vital Signs Temperature 97.8 F 04/12/20 21:05 Pulse Rate 73 04/12/20 21:05 Respiratory Rate 18 04/12/20 21:05 Blood Pressure 164/111 04/12/20 21:05 O2 Sat by Pulse Oximetry 98 04/12/20 21:05 Pain Scale Pain Intensity 6 - Physical Exam General Appearance: mild distress Eye Exam: PERRL/EOMI Ears, Nose, Throat Exam: normal ENT inspection Neck Exam: normal inspection Respiratory Exam: normal breath sounds, chest tenderness (right posterior chest wall, ribs) Cardiovascular Exam: regular rate/rhythm, normal heart sounds Gastrointestinal/Abdomen Exam: soft, normal bowel sounds Pelvic Exam: not done Rectal Exam: deferred Back Exam: normal inspection, point tenderness (right posterior ribs) Extremity Exam: normal inspection Neurologic Exam: alert, oriented x 3, cooperative Skin Exam: normal color SpO2 Interpretation: normal SpO2: 98 O2 Delivery: Room Air - Course Nursing assessment & vital signs reviewed: Yes - Radiology Exams Ribs X-ray Interpretation: Reviewed by me, Teleradiologist Report, Non-displaced Fracture (ribs 10 and 11 on the right) Ordered Tests: Active Orders 24 hr Category Date Time Status RIBS UNILATERAL Stat Exams 04/12/20 21:57 Taken - Progress Progress: unchanged Air Movement: good Progress Note: Minor rib fx's, declined Rx 04/13/20 01:01 Blood Culture(s) Obtained: No Antibiotics given: No Counseled pt/family regarding: diagnosis, rad results - Departure Departure Disposition: Home Clinical Impression: Rib fractures Qualifiers: Encounter type: initial encounter Rib fracture type: multiple ribs Fracture type: closed Laterality: right Qualified Code(s): S22.41XA - Multiple fractures of ribs, right side, initial encounter for closed fracture Condition: Stable Critical Care Time: No Referrals: MARIELOS MCCORD MD [Primary Care Provider] - Instructions: Rib Fractures in Adults Additional Instructions: Advil for pain. Activity as tolerated. Recheck as needed.
[2020-04-12 22:21] VITALS: BP 142/80; PULSE 84
--- NOTE | 2020-04-13 08:40 | XRAY ---
Indication: Right mid to lower rib pain following fall. Comparison: None. There is a CT chest August 21, 2019. 2 view right ribs demonstrates new nondisplaced 10/11 rib fractures of uncertain chronicity. Stable osteopenia, old 7-9 right rib fractures, old left 8 rib fracture, mild multilevel degenerative spondylosis, double curvature scoliosis, right hilar calcified nodes, and aortic calcifications.
== END 2020-04-12 22:34 | disposition home or self-care (01) ==
LOC: ED 20:53
DX: S22.42XA Multiple fractures of ribs, left side, initial encounter for closed fracture (principal); W17.89XA Other fall from one level to another, initial encounter; Y93.89 Activity, other specified; Y92.9 Unspecified place or not applicable; Z79.899 Other long term (current) drug therapy
CPT/HCPCS: 71100; 99283

== ENCOUNTER 2020-04-15 10:06 | Emergency (ER) | payer MEDICARE, OTHER ==
[2020-04-15 10:16] VITALS: BP 201/86
[2020-04-15] MEDS ORDERED: Sodium Chloride 0.9% 1000 ML 1,000 ML IV STA (10:27)
[2020-04-15] MEDS ORDERED: Sodium Chloride 0.9% 1000 ML 1,000 ML ONE (10:34)
--- NOTE | 2020-04-15 10:35 | ERPHSYRPT ---
- History of Present Illness Time Seen by Provider: 04/15/20 10:32 Source: patient, EMS Exam Limitations: no limitations Patient Subjective Stated Complaint: PT HERE FOR PAIN TO RIGHT RIB AREA,SHE FX RIBS ON THE RIGHT SIDE AFTER A FALL, SHE STATES SHE HAS NOT BEEN GETTING OUT PF BED MUCH, SHE HAD SURG ON 03/01/20 FOR HERNIA Triage Nursing Assessment: PT ALERT, ARRIVED PER WC, FACE MASK IN PLACE, RESP EASY, SKIN W/D/P. PT REFUSES TO TURN, SHE STATES SHE HAS HELP AT HOME BUT THINKS SHE NEED TO GO TO REHAB TO . SHE WALKER AT HOME Physician History: Patient is 75-year-old female fell at home 4 days ago came to the emergency room where she was diagnosed having a right side rib fracture. She was sent home but since then she has been staying in the bed due to severe pain she cannot get out of the bed. She denies any fever chills nausea vomiting or shortness of breath or chest pain. Timing/Duration: day(s) (3 days ago) Severity: moderate Associated Symptoms: denies symptoms Allergies/Adverse Reactions: hydrocodone Adverse Reaction (Mild, Verified 04/15/20 10:16) Nausea and Vomiting Home Medications: Ropinirole HCl 1 mg PO QHS 03/14/17 [History] Simvastatin 20Mg [Zocor 20Mg] 20 mg PO DAILY 03/14/17 [History] Nitroglycerin 0.4 mg Tablet [Nitrostat 0.4 MG Tablet] 0.4 mg SL UD 08/21/19 [History] Carvedilol 3.125 mg [Coreg 3.125 MG] 3.125 mg PO BID 01/07/20 [History] Pantoprazole Sodium 20 mg PO DAILY 01/07/20 [History] Aspirin 81 gm Chew [Baby Aspirin 81 mg Chew] 81 mg DAILY 04/15/20 [History] Garlic 1,000 mg DAILY 04/15/20 [History] Hx Tetanus, Diphtheria Vaccination/Date Given: No Hx Influenza Vaccination/Date Given: No Hx Pneumococcal Vaccination/Date Given: No Immunizations Up to Date: Yes Travel Risk - International Travel Have you traveled outside of the country in past 3 weeks: No - Coronavirus Screening Are you exhibiting any of the following symptoms?: No Close contact with a COVID-19 positive Pt in past 14-21 Days: No - Review of Systems Constitutional: No Fever, No Chills Eyes: No Symptoms Ears, Nose, & Throat: No Symptoms Respiratory: No Cough, No Dyspnea Cardiac: Other (right side chestwall pain), No Chest Pain, No Edema, No Syncope Abdominal/Gastrointestinal: No Abdominal Pain, No Nausea, No Vomiting, No Diarrhea Genitourinary Symptoms: No Dysuria Musculoskeletal: No Back Pain, No Neck Pain Skin: No Rash Neurological: No Dizziness, No Focal Weakness, No Sensory Changes Psychological: No Symptoms Endocrine: No Symptoms All Other Systems: Reviewed and Negative - Past Medical History Pertinent Past Medical History: Yes Neurological History: No Pertinent History ENT History: No Pertinent History Cardiac History: Arrhythmia, High Cholesterol Respiratory History: No Pertinent History Endocrine Medical History: No Pertinent History Musculoskeletal History: Arthritis GI Medical History: GERD, Other History: No Pertinent History Psycho-Social History: No Pertinent History Female Reproductive Disorders: No Pertinent History Other Medical History: Hx of hiatal hernia- SURGERY MAR 07, Restless leg syndrome - Past Surgical History Past Surgical History: Yes Neuro Surgical History: No Pertinent History Cardiac: No Pertinent History Respiratory: No Pertinent History Gastrointestinal: No Pertinent History Genitourinary: No Pertinent History Musculoskeletal: Orthopedic Surgery Female Surgical History: Tubal Ligation Other Surgical History: L. Knee replacement, EGD "2 or 3 times". HIATAL HERNIA REPAIR ON MAR 07 - Social History Smoking Status: Never smoker Exposure to second hand smoke: Yes Drug Use: none Patient Lives Alone: No Significant Family History: no pertinent family hx - Female History Hx Last Menstrual Period: POST Hx Now: No - Nursing Vital Signs Nursing Vital Signs: Initial Vital Signs Temperature 97.5 F 04/15/20 10:07 Pulse Rate 70 04/15/20 10:07 Respiratory Rate 18 04/15/20 10:07 Blood Pressure 201/86 04/15/20 10:07 O2 Sat by Pulse Oximetry 97 04/15/20 10:07 Pain Scale Pain Intensity 5 - Physical Exam General Appearance: no apparent distress, alert Eye Exam: PERRL/EOMI, eyes nml inspection Ears, Nose, Throat Exam: normal ENT inspection, TMs normal, pharynx normal, moist mucous membranes Neck Exam: normal inspection, non-tender, supple, full range of motion Respiratory Exam: chest tenderness (right side chestwall), diminished breath sounds, No respiratory distress Cardiovascular Exam: regular rate/rhythm, normal heart sounds, normal peripheral pulses Gastrointestinal/Abdomen Exam: soft, normal bowel sounds, No tenderness, No mass Back Exam: normal inspection, normal range of motion, No CVA tenderness, No vertebral tenderness Extremity Exam: normal inspection, normal range of motion, pelvis stable Neurologic Exam: alert, oriented x 3, cooperative, normal mood/affect, nml cerebellar function, nml station & gait, sensation nml, No motor deficits Skin Exam: normal color, warm, dry, No rash Lymphatic Exam: No adenopathy SpO2: 97 - Course Nursing assessment & vital signs reviewed: Yes EKG Interpreted by Me: Non-specific ST Changes - Radiology Exams Chest X-ray Interpretation: Reviewed by me (old ribs fracture, no infiltrate) Ordered Tests: Active Orders 24 hr Category Date Time Status EKG-ER Only STAT Care 04/15/20 10:27 Active Oxygen-ED Only Nasal Cannula 2 lpm Care 04/15/20 10:27 Active CHEST 1 VIEW (PORTABLE) Stat Exams 04/15/20 10:27 Taken CBC W DIFF Stat Lab 04/15/20 11:00 Completed Incentive Spirometry UD RT 04/15/20 12:42 Completed Medication Summary Discontinued Medications Generic Name Dose Route Start Last Admin Trade Name Freq PRN Reason Stop Dose Admin Sodium Chloride 1,000 mls @ 999 mls/hr 04/15/20 10:27 04/15/20 11:52 Sodium Chloride 0.9% 1000 Ml IV 04/15/20 11:27 Infused .Q1H1M STA Infusion Sodium Chloride Confirm 04/15/20 10:34 Sodium Chloride 0.9% 1000 Ml Administered 04/15/20 10:35 Dose 1,000 mls @ ud .ROUTE .STK-MED ONE Ketorolac Tromethamine 30 mg 04/15/20 11:19 04/15/20 11:26 Toradol 30 Mg Injection IV 04/15/20 11:20 30 mg STAT ONE Administration Ketorolac Tromethamine Confirm 04/15/20 11:25 Toradol 30 Mg Injection Administered 04/15/20 11:26 Dose 30 mg .ROUTE .STK-MED ONE Lidocaine 2 patch 04/15/20 11:50 04/15/20 11:59 Lidoderm Patch 5% TOP 04/15/20 11:51 2 patch ONCE ONE Administration Lab/Rad Data: Laboratory Result Diagrams 04/15/20 11:00 Laboratory Results 04/15/20 Range/Units 11:00 WBC 6.4 (4.0-10.5) K/mm3 RBC 4.42 (4.1-5.4) M/mm3 Hgb 13.6 (12.0-16.0) gm/dl Hct 42.7 (35-47) % MCV 96.6 (78-100) fl MCH 30.8 (26-32) pg MCHC 31.9 L (32-36) g/dl RDW 13.1 (11.5-14.0) % Plt Count 255 (150-450) K/mm3 MPV 10.4 (7.5-11.0) fl Gran % 74.8 H (36.0-66.0) % Eos # (Auto) 0.10 (0-0.5) Absolute Lymphs (auto) 0.86 L (1.0-4.6) Absolute Monos (auto) 0.62 (0.0-1.3) Lymphocytes % 13.4 L (24.0-44.0) % Monocytes % 9.7 (0.0-12.0) % Eosinophils % 1.6 (0.00-5.0) % Basophils % 0.5 (0.0-0.4) % Absolute Granulocytes 4.79 (1.4-6.9) Basophils # 0.03 (0-0.4) - Progress Progress: improved, pain not gone completely Progress Note: 04/15/20 11:44 Strongly advised about ambulation at home with walker. Patient is also advised flutter treatment to improve the breathing. Patient is advised to call her primary care physician on Friday for further physical therapy as well as home health therapy. Counseled pt/family regarding: diagnosis, need for follow-up, rad results - Departure Departure Disposition: Home Clinical Impression: Rib fractures Qualifiers: Encounter type: sequela Rib fracture type: multiple ribs Fracture type: closed Laterality: right Qualified Code(s): S22.41XS - Multiple fractures of ribs, right side, sequela Condition: Stable Critical Care Time: No Referrals: MARIELOS MCCORD MD [Primary Care Provider] - Instructions: Rib Fracture (DC), Bruised Rib Additional Instructions: Discharge/Care Plan LUIS ANTONIO NORMAN was seen on 04/15/20 in the Emergency Room. The patient was counseled regarding Diagnosis,Lab results, Imaging studies, need for follow up and when to return to the Emergency Room. Prescriptions given: Discharge Note I have spoken with the patient and/or caregivers. I have explained the patient's condition, diagnosis and treatment plan based on the information available to me at this time. I have answered the patient's and/or caregiver's questions and addressed any concerns. The patient and/or caregivers have as good understanding of the patient's diagnosis, condition and treatment plan as can be expected at this point. The vital signs have been stable. The patient's condition is stable and appropriate for discharge from the emergency department. The patient will pursue further outpatient evaluation with the primary care physician or other designated or consulting physician as outlined in the discharge instructions. The patient and/or caregivers are agreeable to this plan of care and follow-up instructions have been explained in detail. The patient and/or caregivers have received these instruction. The patient/and or caregivers are aware that any significant change in condition or worsening of symptoms should prompt an immediate return to this or the closest emergency department or call 911. LUIS ANTONIO NORMAN was seen on 04/15/20 n the Emergency Room. At that time you were treated for an emergent condition, during your visit Laboratory, Radiology and/or other procedures may have been ordered. It is very important that you follow-up with your Primary Care Physician MARIELOS MCCORD within the next 24- 48 hours to review your Emergency Room visit and the final results of testing that was ordered. Some test results such as Urine Cultures, Blood Cultures, and other cultures if ordered will not be finalized for 24-48 hours. If you do not have a Primary Care Provider please call the medical records department at [phone] ext [phone] to obtain a copy of your results or you may sign into our patient portal to obtain these results by visiting us @ [email or web address] and completing the following steps: 1. Click on the Patient Portal link 2. Click the Patient Self Enrollment Link to complete the enrollment form and entering your 3. Once the enrollment form is completed you will receive an email with a temporary ID and password at the email address you provided. 4. Next choose a user name and password. Your user name must be at least 4 characters long and your password must be at least 4 characters long. 5. Choose a security question from the list and provide your answer to the question. If you already have signed into the Health Portal you may access your Health Care Information 03/02 by the following steps: 1. Login to our website @ [email or web address] 2. Enter your original user name and password. FAQS The [facility] Health Portal is an online tool that contains your Lab Results, Radiology Reports, Visit History, Discharge Instructions and Health Summary Lab and Radiology Results will not be available for 72 hours on the portal. The Portal is a secure site, passwords are encryted and URLs are re-written so they cannot be copied and pasted. You and authorized family members are the only ones who can access your Portal. Also there is a timeout feature that protects your information if you leave the Portal page open. If you have technical difficulty please use the Contact Us link on the page this will allow you to submit any questions you have regarding the Portal or you may contact the Medical Record Department at [phone]. Prescriptions: Buspirone HCl 5 mg [Buspar 5 mg] 5 mg PO TID #30 tablet Lidocaine HCl 5% Patch [Lidoderm Patch 5%] 2 patch TOP DAILY #30 patch Ketorolac Tromethamine [Toradol] 10 mg PO TID #15 tablet
[2020-04-15 11:10] LABS: Absolute Neutrophil Ct (ANC) 4.79 (1.4-6.9); BASOPHIL % 0.5 % (0.0-0.4); Basophil (Absolute #) 0.03 (0-0.4); Eosinophil % 1.6 % (0.00-5.0); Hematocrit 42.7 % (35-47); Hemoglobin 13.6 gm/dl (12.0-16.0); Lymphocyte (Absolute #) 0.86 (1.0-4.6); Lymphocytes % 13.4 % (24.0-44.0); Mean Cell Volume 96.6 fl (78-100); Mean Corpuscular Hemoglobin 30.8 pg (26-32); Mean Corpuscular Hgb Concent. 31.9 g/dl (32-36); Mean Platelet Volume 10.4 fl (7.5-11.0); Monocyte (Absolute #) 0.62 (0.0-1.3); Monocytes % 9.7 % (0.0-12.0); Neutrophil % 74.8 % (36.0-66.0); Platelet Count 255 K/mm3 (150-450); Red Blood Count 4.42 M/mm3 (4.1-5.4); Red Cell Distribution Width 13.1 % (11.5-14.0); White Blood Count 6.4 K/mm3 (4.0-10.5)
[2020-04-15] MEDS ORDERED: TORAdol 30 mg Injection IV ONE (11:19)
[2020-04-15] MEDS ORDERED: TORAdol 30 mg Injection ONE (11:25)
[2020-04-15] MEDS ORDERED: Lidoderm Patch 5% TOP ONE (11:50)
[2020-04-15 11:58] VITALS: PULSE 78
[2020-04-15 13:21] VITALS: O2SAT 98
--- NOTE | 2020-04-15 18:22 | XRAY ---
Indication: Right chest pain. Comparison: August 21, 2019. Portable chest again demonstrates a few calcified granulomas and minimal left base atelectasis/scarring. No focal infiltrate, consolidation, or large effusion. Heart is not enlarged. Bony thorax intact again with mild osteopenia, mild dextroscoliosis, and old right 7 rib fracture. Impression: Nonacute chest with chronic features.
== END 2020-04-15 13:21 | disposition home or self-care (01) ==
LOC: ED 10:06
DX: S22.41XS Multiple fractures of ribs, right side, sequela (principal); Z79.899 Other long term (current) drug therapy
CPT/HCPCS: 36415; 71045; 85025; 96360; 96374; 99284; J1885; A9270-GY

== ENCOUNTER 2020-09-22 06:54 | Day surgery (SDC) | payer MEDICARE, OTHER ==
[~2020-09-22 06:54] MED LIST changes: +BUPIVACAINE 0.5% VIAL IJ ONE; -DIPRIVAN 200 MG/20 ML IV ONE; +Lactated Ringers 1,000 ML IV ONE; -Lactated Ringers 1,000 ML IV SCH; +XYLOCAINE 1% HCL 20 ML MDV ONE
[2020-09-22] MEDS ORDERED: Lactated Ringers 1,000 ML IV SCH (07:30)
[2020-09-22] MEDS ORDERED: CEFAZOLIN 2 GM-D5W BAG** 2 GM/50 ML ML IV SCH (07:30)
[2020-09-22] MEDS ORDERED: Decadron 4 MG INJ ONE (09:21)
[2020-09-22] MEDS ORDERED: DIPRIVAN 200 MG/20 ML IV ONE (09:21)
[2020-09-22] MEDS ORDERED: BRIDION 200MG/2ML IV ONE (09:21)
[2020-09-22] MEDS ORDERED: Zofran 4 MG/2 ML VIAL ONE (09:21)
[2020-09-22] MEDS ORDERED: Zemuron 100 MG/10 ML ONE (09:21)
[2020-09-22] MEDS ORDERED: SUBLIMAZE 100 MCG/2 ML ONE (09:21)
[2020-09-22] MEDS ORDERED: Xylocaine-Mpf 2% 5 Ml Vial ONE (09:21)
[2020-09-22] MEDS ORDERED: Ephedrine Sulfate 50 MG/ML ONE (10:02)
--- NOTE | 2020-09-22 12:05 | XRAY ---
Indication: Surgery for hammertoe. Intraoperative fluoroscopy provided for 1 minute 11 seconds. 14 digital spot images of the right foot submitted for interpretation demonstrates orthopedic K wires/screws traversing entire 2nd/3rd/4th phalanges and including the 2nd MTP. Additional 2nd metatarsal head orthopedic screw. Correlate with intraoperative findings/report.
[2020-09-22 13:26] VITALS: BP 180/96; PULSE 67; O2SAT 94
--- NOTE | 2020-09-22 14:32 | XRAY ---
1 minute and 11 seconds fluoroscopy time in surgery for hammertoe repair of the right foot.
--- NOTE | 2020-09-22 17:09 | PCM.NOTE ---
Podiatry Narrative Note Podiatry Narrative Note: Patient name: John oliveira : 1945 Date of operation: 09/22/2020 Surgeon:Marshall Kumar DPM Assistants: Pre-op Dia: Deformed 2nd metatarsal right foot 2: Hammertoe 2nd 3rd 4th and 5th digits right foot Postop Diag: same Procedure: 1: Mey osteotomy 2nd metatarsal left foot 2: PIPJ Arthroplasty of 2nd 3rd 4th digits right foot 3: 5th digital derotational arthroplasty Anesthesia: General Abx: 1g ancef Hemostasis: L ankle tourniquet at 250mmgh 108 min total EBL: less than 1ml Materials: 2-0 vicryl, 4-0 nylon, 2x 0.35 k wire x1 1.1mm K-wire snap off screw, 3 phalinx implants Injectibles: pre-op 20cc and post op 10cc of 0.5% marcaine plain Pathology: none Microbiology: none Findings: Adequate reduction of hammered digits once a simulated weight bearing surface was applied. Complications: none Discription of operation: Following satisfactory pre-op evaluation the patient was brought into the OR and placed on the OR table in the supine position. MAC sedation was administered by anesthesia. Following sedation, a well padded pneumatic tourniquet was applied to the left ankle. Local anesthetic comsisting of 20ml of 0.5% marcaine plain was then injected into the left foot. The foot was then prepped and draped in the usual sterile manner. Attention was directed to the dorsal surface of the right 2nd digit where an approximately 4cm linear incision was made by 15 blade from proximal to distal overlying the MPJ and PIPJ. The skin was freed from the subcutaneous tissue medial and lateral to the joints. The extensor tendon over the MPJ and prox phalanx was transected proximal to distal in z plasty fasion using a 15 blade. An H style capsulotomy was preformed and the medial and lateral capsule and collateral ligaments were freed from the head of the metatarsal by 15 blade and then a McGlamry elevator was used to free up the plantar metatarsal head. An oscillating saw was then used to cut from dorsal distal metatarsal head to plantar proximal to perform a Mey type osteotomy. The head was then moved several millimeters proximaly and fixated by k wire from dorsal proximal to plantar distal across the osteotomy site. A 11mm snap of screw was then inserted into the bone followed by removal of the kwire. A 15 blade was then passed closely along the head of the proximal phalanx medially and laterally to release the capsular and collateral ligaments. Using an ossillating saw the head of the proximal phalanx was resected and removed from the field. There was noted to be complete reduction of contracture of the digit at the MPJ and PIPJ. A 0.45 kirshner wire was then drilled through the middle and distal phalanges from proximal to distal out the tip of the toe. A phalinx implant was then inserted first into the distal surigcal site at the middle phalanx and then pushed into the proximal phalanx. The digit was then held in alignment and the kirshner wire was drilled into the proximal phalanx from distal to proximal then into the 2nd metatarsal for stability. The kirshner wire was then cut and wire cap attached. Attention was directed to the dorsal surface of the left 3rd digit where an approximately 4cm linear incision was made by 15 blade from proximal to distal overlying the MPJ and PIPJ. The skin was freed from the subcutaneous tissue medial and lateral to the joints. Using an ossillating saw the head of the proximal phalanx was resected and removed from the field. There was noted to be complete reduction of contracture of the digit at the MPJ and PIPJ. A 0.45 kirshner wire was then drilled through the middle and distal phalanges from proximal to distal out the tip of the toe. A phalinx implant was then inserted first into the distal surigcal site at the middle phalanx and then pushed into the proximal phalanx. The digit was then held in alignment and the kirshner wire was drilled into the proximal phalanx from distal to proximal then into the 3rd base of the proximal phalanx for stability. The kirshner wire was then cut and wire cap attached. Attention was directed to the dorsal surface of the left 4th digit where an approximately 4cm linear incision was made by 15 blade from proximal to distal overlying the MPJ and PIPJ. The skin was freed from the subcutaneous tissue medial and lateral to the joints. Using an ossillating saw the head of the proximal phalanx was resected and removed from the field. There was noted to be complete reduction of contracture of the digit at the MPJ and PIPJ. A 0.45 kirshner wire was then drilled through the middle and distal phalanges from proximal to distal out the tip of the toe. A phalinx implant was then inserted first into the distal surigcal site at the middle phalanx and then pushed into the proximal phalanx. The digit was then held in alignment and the kirshner wire was drilled into the proximal phalanx from distal to proximal then into the 4th base of the proximal phalanx for stability. The kirshner wire was then cut and wire cap attached. Attention was directed to the dorsal surface of the R 5th digit where a 2.5cm elliptical incision was made using a 15 blade encompassing the kyperkeratosis overlying the PIPJ. The incision was carefully deepened and the skin flap was lifted and resected off. Attention was then directed to the PIPJ and using a 15 blade the extensor tendon was transected. A 15 blade was then used closely along the head of the proximal phalanx medially and laterally to release the capsular and collateral ligaments. Using an ossillating saw the head of the proximal phalanx was resected and removed from the field. The subcuticular tissue was then reapproximated with 4-0 vicryl and the skin edges were coapted using 4-0 nylon in simple interrupted fasion. The subcutaneous layer was reapproximated using 2-0 vicryl and the skin coapted using 4-0 nylon suture by horizontal mattress stitch. A post op injection of 10ml of 0.5% marcaine plain was then given to the left foot. The tourniquet was then deflated. A dressing was applied consisting of betadine soaked adaptec, 4x4 gauze, and kerlix. A posterior splint was then applied with the foot at 90degrees and wrapped with HAJA bandage. The patient tolerated anesthesia and the procedure well and was transported to recovery with VSS and VSI to [facility]. Orders for the following were written: 1. Partial weight bearing to the right foot with walker 2. dispense surgical shoe 3. keep dressing CDI 4. final radiographs taken post operatively 3 views R foot 5. prescriptions dispensed 6. d/c per anesthesia
== END 2020-09-22 13:55 | disposition home or self-care (01) ==
LOC: SDC 06:54
PROVIDERS: ATTEND Podiatrist Foot & Ankle Surgery
DX: M20.41 Other hammer toe(s) (acquired), right foot (principal); M79.671 Pain in right foot; M24.574 Contracture, right foot
CPT/HCPCS: 28285; 28308; 73620; 76000; 99100; J0690; J1100; J2405; J2704; J3010

== ENCOUNTER 2021-01-08 09:18 | Day surgery (SDC) | payer MEDICARE, OTHER ==
--- NOTE | 2020-12-18 08:22 | HP ---
DATE OF SURGERY: 12/18/2020 HISTORY OF PRESENT ILLNESS: The patient is a 75 year-old with problems of things getting stuck. His last dilatation was back in 2012, EGD possible dilatation. PAST MEDICAL HISTORY: Gastroesophageal reflux disease, arrhythmia, hyperlipidemia, hypertension, arthritis, restless leg syndrome. PAST SURGICAL HISTORY: Hiatal hernia repair. EGD with dilatation. Left knee replacement. Right ankle fracture in the past. Joint replacement. Right ovarian cyst removed. Endoscopy in the past. Lumpectomy right breast. Tubal in the past. Bladder suspension. Proximal tibia open reduction internal fixation in the past. Foot fracture in the past. MEDICATIONS: Omeprazole, ropinirole, simvastatin, aspirin, B complex, Glucosamine Chondroitin, calcium with vitamin D, vitamin E, fish oil. She has taken a sleeping pill in the past. ALLERGIES: NORCO (GI UPSET). FAMILY HISTORY: Negative. SOCIAL HISTORY: Denies smoking, denies alcohol abuse. REVIEW OF SYSTEMS: Fourteen systems reviewed per admission assessment. PHYSICAL EXAMINATION: GENERAL: No acute distress. HEENT: Sclerae nonicteric. NECK: No JVD. CHEST: Equal excursion, nonlabored breathing. CVS: Regular rate and rhythm. ABDOMEN: Soft. No peritoneal signs. EXTREMITIES: No significant edema. NEURO: Alert, oriented, moving extremities symmetrically. PSYCH: Appropriate mood and affect. IMPRESSION: Dysphagia upper esophagus, need EGD possible dilatation, possible biopsy. Risks and benefits explained in detail including but not limited to bleeding or infection, risk of bowel injury or perforation possibly requiring open procedure, risk of missed or nondiagnosis or incomplete exam, general risk of anesthesia or sedation, possibility if dilatation improves swallowing may need to be repeated again down the road. She also understands possibility of dilatation may not improve her swallowing. It could be more of a functional or neurological issue. General risk of anesthesia or sedation but not limited, risk of perforation possibly requiring open procedure, ongoing morbidity but not limited to, consent obtained, will proceed with EGD possible dilatation possible biopsy as an outpatient.
--- NOTE | 2021-01-08 08:34 | HP ---
DATE OF SURGERY: 01/08/2021 HISTORY OF PRESENT ILLNESS: The patient is a 75 year-old problems with solids getting stuck in her upper esophagus. She had it dilated back in 2012. PAST MEDICAL HISTORY: Hyperlipidemia, restless leg syndrome, reflux in the past. PAST SURGICAL HISTORY: She had hiatal hernia repaired robotically repaired with mesh. Tubal ligation. Bladder suspension. Endoscopy, colonoscopy. Yasmine fundoplication in the past which she felt much better after that procedure in the past. MEDICATIONS: Mcintosh-3, melatonin, vitamin E, calcium with vitamin D3, vitamin B complex, Glucosamine, simvastatin, ropinirole, omeprazole, garlic, aspirin, acetaminophen. ALLERGIES: NORCO (GI UPSET). FAMILY HISTORY: Diabetes. Leukemia. Pancreatic cancer. SOCIAL HISTORY: No smoking or alcohol abuse. REVIEW OF SYSTEMS: Fourteen systems reviewed. Negative or noncontributory as above and per preadmission questionnaire. PHYSICAL EXAMINATION: GENERAL: No acute distress. HEENT: Sclerae nonicteric. NECK: No JVD. CHEST: Equal excursion, nonlabored breathing. CVS: Regular rate and rhythm. ABDOMEN: Soft. No peritoneal signs. EXTREMITIES: No significant edema. NEURO: Alert, oriented, moving extremities symmetrically. PSYCH: Appropriate mood and affect. IMPRESSION: Dysphagia upper esophagus solids in specific. I feel the patient needs upper endoscopy possible biopsy, possible dilatation. Risks and benefits explained in detail including but not limited to bleeding or infection, risk of bowel injury or perforation possibly requiring open procedure, risk of missed or nondiagnosis or incomplete exam possibly requiring barium swallow, other studies or procedures. General risk of anesthesia or sedation, risk of bowel prep but not limited to, consent obtained, will proceed with outpatient EGD possible biopsy, possible dilatation.
[2021-01-08] MEDS ORDERED: Lactated Ringers 1,000 ML IV SCH (09:30)
[2021-01-08] MEDS ORDERED: Lactated Ringers 1,000 ML IV ONE (09:34)
[2021-01-08] MEDS ORDERED: Xylocaine-Mpf 2% 5 Ml Vial ONE (10:59)
[2021-01-08] MEDS ORDERED: DIPRIVAN 200 MG/20 ML IV ONE (11:00)
[2021-01-08 12:03] VITALS: O2SAT 100
[2021-01-08 12:44] VITALS: BP 152/68; PULSE 68
--- NOTE | 2021-01-09 08:21 | OP ---
SURGERY DATE/TIME: 01/08/2021 1103 PREOPERATIVE DIAGNOSES: 1) Prior history of very large hiatal hernia repair with complication in the past. 2) Prior history of distal esophagitis. 3) New symptomatic dysphagia upper esophagus. POSTOPERATIVE DIAGNOSES: 1) Mild gastric erythema. Cold biopsy taken to evaluate for CLOtest. 2) Wrap appears to be intact. 3) Short segment distal esophagitis improved from previous. 4) Proximal esophageal narrowing and spasm. 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 PROCEDURES: 1) EGD with cold biopsy of antrum for Helicobacter pylori. 2) Cold biopsy distal esophagus to evaluate for esophagitis improved from last endoscopy. 3) Proximal esophageal dilatation and symptomatic proximal esophageal narrowing and spasm (size 20 balloon dilator). SURGEON: Dr. Sanket Norton. ANESTHESIA: MAC. ESTIMATED BLOOD LOSS: Minimal. INDICATIONS: As noted above. Risks and benefits explained in detail and not limited to and consent obtained. DESCRIPTION OF PROCEDURE AND FINDINGS: The patient is taken to the endoscopy room. MAC anesthesia introduced. Bite block positioned. Video gastroscope passed down the oropharynx. There was some proximal esophageal narrowing and spasm. There were no gross lesion or mass to biopsy but as she is having symptoms here it was felt this warranted dilatation. The endoscope was able to just pass through here through the distal esophageal through the wrap through the patent pylorus to the junction of the second and third portion of the duodenum. Third, second and first portion of duodenum grossly unremarkable. The scope pulled back into the stomach. There he had some mild gastric erythema whether this is normal variation versus early gastritis, cold biopsy taken to evaluate for Helicobacter pylori for CLOtest. Good hemostasis noted. On retroflex the wraps appear to still be intact. The scope was then straightened. The gastroesophageal junction had short segment of distal esophagitis this is improved from previous esophagitis prior to hiatal hernia repair and wrap. Cold biopsy taken. Good hemostasis noted. Otherwise she had some tertiary contractions in the esophagus. On withdrawal to the narrowed area, there was no evidence of any lesion to biopsy. The scope is then passed back down into the stomach. It was felt she warranted balloon dilatation and a 20 balloon is carefully passed down the open space of the stomach and pulled back up to narrowed proximal esophageal narrowed area and incrementally inflated first stage for 30 to 45 seconds and second stage for 30 to 45 seconds and final stage for approximately 2 minutes with balloon dilator. The balloon was then decompressed and withdrawn. The scope is passed back down the stomach and gradually withdrawn. There was minimal mucosal abrasion. There were no signs of any full thickness issues secondary to dilatation. The patient tolerated the procedure well. There were no immediate complications. There was no family out in the waiting area when I went out there initially but will check back later. Otherwise will see her back in the office in two weeks.
== END 2021-01-08 12:35 | disposition home or self-care (01) ==
LOC: SDC 09:18
PROVIDERS: ATTEND Surgery
DX: K22.2 Esophageal obstruction (principal); K22.4 Dyskinesia of esophagus; K22.8 Other specified diseases of esophagus; K20.90 Esophagitis, unspecified without bleeding
CPT/HCPCS: 87081; 99100; J2704

== ENCOUNTER 2021-11-22 18:45 | Emergency (ER) | payer MEDICARE, OTHER ==
[2021-11-22] MEDS ORDERED: PROTONIX 40 MG IV IV ONE ×2 (19:22→19:43)
[2021-11-22] MEDS ORDERED: Carafate SUSPENSION 1000 MG/10 ML PO ONE (19:22)
[2021-11-22] MEDS ORDERED: CLONIDINE 0.1 MG TABLET PO ONE (19:23)
--- NOTE | 2021-11-22 19:27 | ERPHSYRPT ---
- History of Present Illness Time Seen by Provider: 11/22/21 18:46 Source: patient, family Exam Limitations: no limitations Physician History: 76-year-old female with history of hypertension, hyperlipidemia, restless leg syndrome, GERD with esophagitis, esophageal stricture needing multiple dilatations in the past presented in the ER with off-and-on worsening choking episodes. This happened twice today and last episode was almost an hour prior to arrival after she had a steak and was not able to swallow well and seemed like it got stuck in the middle of the chest and kept on gagging, spitting up phlegms and finally her symptoms relieved on presentation in the ER. She is currently complaining of some mild discomfort in the center of the chest/epigastric area. Reports having similar symptoms multiple times in the past. She does see Dr. Aleks Alejandro and is scheduled to have another EGD with possible dilatation soon. Denies any difficulty breathing. Patient has high blood pressure and has not taken her routine medications today. Timing/Duration: today, intermittent, improved Severity: moderate Modifying Factors: Worsens With: eating Associated Symptoms: heartburn Allergies/Adverse Reactions: hydrocodone Adverse Reaction (Mild, Verified 11/22/21 19:04) Nausea and Vomiting Home Medications: Ropinirole HCl 1 mg PO QHS 03/14/17 [History] Simvastatin 20Mg [Zocor 20Mg] 20 mg PO DAILY 03/14/17 [History] Carvedilol 3.125 mg [Coreg 3.125 MG] 3.125 mg PO BID 11/05/21 [History] Nitroglycerin 0.4 mg Tablet [Nitrostat 0.4 MG Tablet] 1 tab SL UD 11/05/21 [History] lisinopriL [Zestril] 1 tab PO DAILY 11/05/21 [History] PANTOPRAZOLE 40 mg Tablet [Protonix 40MG Tablet] 40 mg PO DAILY 11/07/21 [History] Hx Tetanus, Diphtheria Vaccination/Date Given: No Hx Influenza Vaccination/Date Given: No Hx Pneumococcal Vaccination/Date Given: No - Review of Systems Constitutional: No Symptoms Eyes: No Symptoms Ears, Nose, & Throat: No Symptoms Respiratory: No Symptoms Cardiac: No Symptoms Abdominal/Gastrointestinal: Nausea, Vomiting Genitourinary Symptoms: No Symptoms Skin: No Symptoms Neurological: No Symptoms Endocrine: No Symptoms Hematologic/Lymphatic: No Symptoms Immunological/Allergic: No Symptoms - Past Medical History Pertinent Past Medical History: Yes Neurological History: No Pertinent History ENT History: No Pertinent History Cardiac History: Arrhythmia, Hypertension Respiratory History: No Pertinent History Endocrine Medical History: No Pertinent History Musculoskeletal History: Other GI Medical History: No Pertinent History, GERD History: No Pertinent History Psycho-Social History: No Pertinent History Female Reproductive Disorders: Other Other Medical History: Lump right breast. - Past Surgical History Past Surgical History: Yes Neuro Surgical History: No Pertinent History Cardiac: No Pertinent History Respiratory: No Pertinent History Gastrointestinal: No Pertinent History Genitourinary: No Pertinent History Musculoskeletal: Joint Replacement Female Surgical History: Lumpectomy Other Surgical History: Left knee replacement. Lumpectomy Right breast, EGD with dilation x 2 and colonoscopy - Social History Smoking Status: Never smoker Exposure to second hand smoke: Yes Drug Use: marijuana Patient Lives Alone: No Significant Family History: no pertinent family hx - Nursing Vital Signs Nursing Vital Signs: Initial Vital Signs Temperature 97.1 F 11/22/21 19:07 Pulse Rate 72 11/22/21 19:07 Respiratory Rate 18 11/22/21 19:07 Blood Pressure 207/90 11/22/21 19:07 O2 Sat by Pulse Oximetry 97 11/22/21 19:07 Pain Scale Pain Intensity 8 - Physical Exam General Appearance: no apparent distress, alert Eye Exam: PERRL/EOMI Ears, Nose, Throat Exam: normal ENT inspection, TMs normal, pharynx normal, moist mucous membranes Neck Exam: normal inspection, non-tender, supple, full range of motion Respiratory Exam: normal breath sounds, lungs clear Cardiovascular Exam: regular rate/rhythm, normal heart sounds Gastrointestinal/Abdomen Exam: soft, normal bowel sounds, No tenderness Back Exam: normal inspection, normal range of motion Extremity Exam: normal inspection, normal range of motion Neurologic Exam: alert, oriented x 3, cooperative Skin Exam: normal color SpO2 Interpretation: normal SpO2: 95 O2 Delivery: Room Air - Course EKG Interpreted by Me: RATE (70), Sinus Rhythm, NORMAL AXIS, NORMAL QRS Ordered Tests: Active Orders 24 hr Category Date Time Status CHEST 1 VIEW (PORTABLE) Stat Exams 11/22/21 19:48 Taken Medication Summary Discontinued Medications Generic Name Dose Route Start Last Admin Trade Name Freq PRN Reason Stop Dose Admin Clonidine 0.1 mg 11/22/21 19:23 11/22/21 19:45 Clonidine Hcl 0.1 Mg Tablet PO 11/22/21 19:24 0.1 mg STAT ONE Administration Clonidine Confirm 11/22/21 19:43 Clonidine Hcl 0.1 Mg Tablet Administered 11/22/21 19:44 Dose 0.1 mg .ROUTE .STK-MED ONE Pantoprazole Sodium 40 mg 11/22/21 19:22 11/22/21 19:45 Pantoprazole 40 Mg Vial IV 11/22/21 19:23 40 mg STAT ONE Administration Pantoprazole Sodium Confirm 11/22/21 19:43 Pantoprazole 40 Mg Vial Administered 11/22/21 19:44 Dose 40 mg IV .STK-MED ONE Sucralfate 1,000 mg 11/22/21 19:22 11/22/21 20:00 Sucralfate 1000 Mg/10 Ml Suspension PO 11/22/21 19:23 1,000 mg STAT ONE Administration - Progress Progress: improved Progress Note: 11/22/21 20:42 She is given IV Protonix along with Carafate and her symptoms are completely resolved. She tolerated oral liquids very well without any choking spell or difficulty swallowing. I believe she has esophageal spasm/strictures needing dilatation again. She is advised not to take any solid food and only liquids and discussed with Dr. Daina Alejandro for EGD. I will give her prescription of Carafate to go home. EKG showed sinus rhythm, does not have any chest pain and chest x-ray no acute findings reviewed by me, official report is pending. Patient blood pressure was elevated and has not taking her medications today. She is given clonidine and improved to 160s. She does not have any chest pain palpitations, shortness of breath, headache, blurry vision, focal numbness or weakness etc. Discussed signs symptoms of worsening needing return to ER which patient/daughter seem understanding. Stable for discharge. 11/22/21 20:46 Counseled pt/family regarding: diagnosis, need for follow-up, rad results - Departure Departure Disposition: Home Clinical Impression: Esophageal stricture, Uncontrolled hypertension Condition: Stable Critical Care Time: No Referrals: MARIELOS MCCORD MD [Primary Care Provider] - Follow up/PCP as directed (1-2 days for reevaluation) IGLESIA GOINS [COURTESY STAFF] - Follow up/PCP as directed (Call tomorrow for reevaluation.) Instructions: Acid Reflux and GERD in Adults (DC), Esophageal Stricture (DC) Additional Instructions: Continue with Protonix. Take liquid diet. Discussed with your GI for further evaluation and possibly EGD sooner. Return to ER if again having choking spell, difficulty swallowing etc. take your blood pressure medications regularly, keep a log and follow-up with PCP for reevaluation. Return to ER if having headache, blurry vision, difficulty speech, focal numbness tingling weakness, chest pain abdominal pain/difficulty breathing etc. Prescriptions: Sucralfate 1 gm [Carafate 1 GM] 1 g PO ACHS #20 tablet
[2021-11-22] MEDS ORDERED: CLONIDINE 0.1 MG TABLET ONE (19:43)
[2021-11-22 20:12] VITALS: BP 219/95; PULSE 66
[2021-11-22 20:50] VITALS: O2SAT 95
--- NOTE | 2021-11-23 08:56 | XRAY ---
Indication: Vomiting and choking. Aspiration. Comparison: September 15, 2020. Portable chest remains hyperinflated and clear with a few incidental tiny calcified granulomas. Heart not enlarged. Bony thorax intact again with mild osteopenia, degenerative changes, old right rib fractures, and dextroscoliosis. Impression: Continued nonacute chest with chronic features.
== END 2021-11-22 20:54 | disposition home or self-care (01) ==
LOC: ED 18:45
DX: K22.2 Esophageal obstruction (principal); I10 Essential (primary) hypertension; R07.9 Chest pain, unspecified; R10.13 Epigastric pain; E78.5 Hyperlipidemia, unspecified; Z79.899 Other long term (current) drug therapy
CPT/HCPCS: 36000; 71045; 82947; 96374; 99284; A9270-GY

== ENCOUNTER 2021-12-17 08:28 | Day surgery (SDC) | payer MEDICARE, OTHER ==
--- NOTE | 2021-11-12 07:54 | HP ---
DATE OF SURGERY: 11/12/2021 HISTORY OF PRESENT ILLNESS: The patient is a 76-year-old with problems with upper esophagus dysphagia, food getting stuck upper esophagus worse recently. She is in need of upper endoscopy possible dilatation, possible biopsy. She had balloon dilatation in the past did not help as much. She is now in need of dilation. PAST MEDICAL HISTORY: Reflux, hyperlipidemia, hypertension, some dysphagia in the past. PAST SURGICAL HISTORY: Upper endoscopy and dilatation in the past. She had a cyst removed. She had colonoscopy in the past. Left knee replacement. MEDICATIONS: Carvedilol, pantoprazole, ropinirole, simvastatin, lisinopril, aspirin. ALLERGIES: NKDA. FAMILY HISTORY: Negative in regards to this problem. SOCIAL HISTORY: No alcohol abuse. REVIEW OF SYSTEMS: Fourteen systems reviewed. No chest pain or palpitations. Other systems negative or noncontributory as above and per preadmission questionnaire. PHYSICAL EXAMINATION: GENERAL: No acute distress. HEENT: Sclerae nonicteric. NECK: No JVD. CHEST: Equal excursion, nonlabored breathing. CVS: Regular rate and rhythm. ABDOMEN: Soft. No peritoneal signs. EXTREMITIES: No significant edema. NEURO: Alert, oriented, moving extremities symmetrically. PSYCH: Appropriate mood and affect. IMPRESSION: Dysphagia upper esophagus. She has had prior hernia repair but she is having more problems more upper esophagus than lower. I feel she would benefit from EGD possible biopsy, possible dilatation with C-arm fluoroscopy. Risks and benefits explained in detail including but not limited to bleeding or infection, risk of bowel injury or perforation possibly requiring open procedure, risk of missed or nondiagnosis or incomplete exam, risk of sedation but not limited to, possibility of no improvement in swallowing as it may be more of a functional or neurologic issue. She also understands if dilatation does help it may need to be repeated again down the road. She understands and agrees to the planned procedure, will proceed with outpatient EGD possible biopsy possible dilatation with C-arm fluoroscopy.
[~2021-12-17 08:28] MED LIST changes: -BUPIVACAINE 0.5% VIAL IJ ONE; -Lactated Ringers 1,000 ML IV ONE; +Lactated Ringers 1,000 ML IV SCH; -XYLOCAINE 1% HCL 20 ML MDV ONE
[2021-12-17] MEDS ORDERED: Lactated Ringers 1,000 ML IV ONE (08:48)
[2021-12-17] MEDS ORDERED: Lactated Ringers 1,000 ML IV SCH (09:00)
[2021-12-17 09:11] VITALS: BP 193/99; PULSE 67; O2SAT 96
--- NOTE | 2021-12-17 09:24 | HP ---
DATE OF SURGERY: 12/17/2021 HISTORY OF PRESENT ILLNESS: The patient is a 76-year-old with problems of some dysphagia upper esophagus, things getting stuck worse recently. Increased dysphagia. She is in need of follow up upper endoscopy possible biopsy, possible dilatation. She had prior dilatation in the past. She is in need of EGD upper endoscopy, possible biopsy possible dilatation with C-arm fluoroscopy with dilator over guide wire. PAST MEDICAL HISTORY: Reflux, hyperlipidemia, hypertension, other problems with her upper esophagus. PAST SURGICAL HISTORY: Hiatal hernia repair in the past. Upper endoscopy in the past. Colonoscopy in the past. Cyst removed in the past. Prior history of hiatal hernia repair with inguinal. MEDICATIONS: Ibuprofen, carvedilol, pantoprazole, ropinirole, Simvastatin, omeprazole, aspirin. ALLERGIES: HYDROCODONE. FAMILY HISTORY: Cancer, diabetes. SOCIAL HISTORY: No alcohol abuse. REVIEW OF SYSTEMS: Fourteen systems reviewed. Negative or noncontributory as above and per preadmission questionnaire. PHYSICAL EXAMINATION: GENERAL: No acute distress. HEENT: Sclerae nonicteric. NECK: No JVD. CHEST: Equal excursion, nonlabored breathing. CVS: Regular rate and rhythm. ABDOMEN: Soft. No peritoneal signs. EXTREMITIES: No significant edema. NEURO: Alert, oriented, moving extremities symmetrically. SKIN: Dry. PSYCH: Appropriate mood and affect. IMPRESSION: Dysphagia upper esophagus. The patient is in need of EGD possible biopsy possible dilatation, C-arm with dilator over the guide wire. General risk of bleeding or infection, risk of bowel injury or perforation possibly requiring open procedure or other interventions, general risk of anesthesia or sedation, possibility of no improvement in her symptoms. If it does improve her symptoms she may need repeated again down the road. She understands and agrees to the planned procedure, will proceed with EGD possible biopsy possible dilatation as an outpatient.
[2021-12-17] MEDS ORDERED: DIPRIVAN 200 MG/20 ML IV ONE (12:27)
== END 2021-12-17 13:10 | disposition home or self-care (01) ==
LOC: SDC 08:28
PROVIDERS: ATTEND Surgery
DX: Z53.8 Procedure and treatment not carried out for other reasons (principal)
CPT/HCPCS: J2704

== ENCOUNTER 2022-02-04 09:35 | Day surgery (SDC) | payer MEDICARE, OTHER ==
--- NOTE | 2022-02-04 08:44 | HP ---
DATE OF SURGERY: 02/04/2022 HISTORY OF PRESENT ILLNESS: The patient is a 76-year-old who had some dysphagia upper esophagus with of balloon dilatation in the past but did not improve her swallowing enough. She is having more swallowing problems and interested in dilatation and use a different type of dilator. She had been previously scheduled in the past with prior request for dilator that slide over the wire to be under C-arm and the facility did not have the right equipment. She had to reschedule with the facility as they had obtained the appropriate dilators. She wanted this to be done at [facility]. PAST MEDICAL HISTORY: Hypertension. Reflux in the past. Hyperlipidemia. PAST SURGICAL HISTORY: Cyst removed. Colonoscopy. Upper endoscopy in the past. Dilatation in the past. Robotic-assisted hiatal hernia repair in the past which she did well from but is having swallowing problems more upper esophagus at this time. MEDICATIONS: Carvedilol, pantoprazole, ropinirole, simvastatin, nitroglycerin, aspirin. ALLERGIES: HYDROCODONE. FAMILY HISTORY: Cancer. Diabetes. SOCIAL HISTORY: No smoking. REVIEW OF SYSTEMS: Fourteen systems reviewed. No chest pain or palpitations. Other systems negative or noncontributory as above and per preadmission questionnaire. PHYSICAL EXAMINATION: GENERAL: No acute distress. HEENT: Sclerae nonicteric. NECK: No JVD. CHEST: Equal excursion, nonlabored breathing. CVS: Regular rate and rhythm. ABDOMEN: Soft. No peritoneal signs. EXTREMITIES: No significant edema. NEURO: Alert, oriented, moving extremities symmetrically. PSYCH: Appropriate mood and affect. IMPRESSION: Dysphagia. Will proceed with EGD possible biopsy as well as dilatation with dilator over the guide wire with C-arm fluoroscopy as an outpatient. General risk of bleeding or infection, risk of bowel injury or perforation possibly requiring open procedure or transfer for stent placement, risk of mortality, risk of no improvement in her swallowing, possibility if dilatation does help she may need it repeated again in the future. She understands and agrees with the planned procedure, will proceed with EGD possible biopsy, dilatation as an outpatient.
[2022-02-04] MEDS ORDERED: Lactated Ringers 1,000 ML IV ONE (10:49)
[2022-02-04] MEDS: Lactated Ringers 1,000 ML IV SCH (11:00)
[2022-02-04] MEDS ORDERED: Quelicin Fliptop 200 MG/10 ML ONE (11:54)
[2022-02-04] MEDS ORDERED: Xylocaine-Mpf 2% 5 Ml Vial ONE (11:54)
[2022-02-04] MEDS ORDERED: DIPRIVAN 200 MG/20 ML IV ONE (11:54)
[2022-02-04] MEDS ORDERED: Pre-Attached Lta Kit TP ONE (12:09)
[2022-02-04] MEDS ORDERED: APRESOLINE 20 MG/ML INJ ONE (12:38)
[2022-02-04 13:15] VITALS: O2SAT 96
[2022-02-04 13:27] VITALS: BP 158/78; PULSE 64
--- NOTE | 2022-02-04 18:11 | XRAY ---
Exam: C-arm guided EGD with dilation. Comparison: AP upright portable chest film from 11/22/2021. Indication: History of past distal thoracic esophageal stricture with dilation; non-passage of barium tablet within distal thoracic esophagus on esophagram from 02/07/2021. Findings: 2 AP C-arm images were obtained of the lower chest including the gastroesophageal junction. A longitudinal tube is seen within the distal thoracic esophagus coursing across the gastroesophageal junction and off the [id number] within the stomach. On one of the images there is a square shaped radiopaque device about the tube in the projection of the distal thoracic esophagus. Correlate clinically. 10 seconds of intraoperative fluoroscopy time was utilized. Impression: 1. As above.
--- NOTE | 2022-02-05 08:24 | OP ---
SURGERY DATE/TIME: 02/04/2022 1207 PREOPERATIVE DIAGNOSIS: Dysphagia upper esophagus. POSTOPERATIVE DIAGNOSES: 1) Dysphagia upper esophagus. 2) Gastric fundal polyp. PROCEDURES: 1) EGD with cold biopsy and polypectomy of gastric polyp. 2) Esophageal dilatation symptomatic proximal esophageal narrowing and spasm (with C-arm fluoroscopy) size 20 mm Savary-Adama [id number] dilator maximum dilatation size (with C-arm fluoroscopy). SURGEON: Dr. Sanket Norton. ANESTHESIA: General. ESTIMATED BLOOD LOSS: Minimal. INDICATIONS: As noted above. Risks and benefits explained in detail and not limited to and consent obtained. DESCRIPTION OF PROCEDURE AND FINDINGS: The patient is taken to the operating room. Anesthesia elected to do general anesthesia. After official time out and no disagreement with planned procedure, video gastroscope easily passed to the oropharynx. There was some proximal esophageal narrowing and spasm. The scope was able to be passed here, this is where she is having symptoms. There is no evidence of any mass or lesion to biopsy. It was felt she would benefit from dilating that area as that is where she is having the symptoms. The scope is passed down through the distal esophagus. Her wrap was intact from her past history of Yasmine fundoplication and hiatal hernia repair. Scope passed into the third portion of the duodenum. Third, second, first portion of duodenum grossly unremarkable. In the distal stomach, there does not appear to be any evidence of any obvious ulcers. No significant inflammation to biopsy at this point. There was a small gastric polyp in the fundus area that was cold biopsied with polypectomy accomplished. Good hemostasis noted. On retroflex, the wrap appeared to be intact. No signs of any recurrent hiatal hernia on endoscopic view. Scope is pulled back carefully inspecting the esophagus one last time. It was felt the esophagus should be dilated. She had a balloon dilatation in the past. It did not seem to improve her much. She elected to go [id number] from the Savary-Adama dilator. The scope passed back down in the stomach. The guide wire was carefully placed confirmed down the stomach on C-arm fluoroscopy, this is followed by passing first starting with size 16. Lubricated dilator easily passed confirming the wrap was intact. Balloon hanging up in the distal part although most of her symptoms are in the upper part of the esophagus. It was felt that passing the initial dilator down through here would be beneficial. [id number] C-arm fluoroscopy spot films taken. Confirmed the dilator was staying over the guide wire. This was then carefully repeated with 17, 18, 19 and lubricated size 20 mm dilator. It was carefully withdrawn. The guidewire was then carefully removed. The scope passed down through the esophagus which more easily passed through the esophagus into the stomach and carefully withdrawn. There was minimal mucosal abrasion from passing the lubricated dilators through the esophagus. There did not appear to be any evidence of any full thickness issues or injury at this time. Appeared to have adequate hemostasis at this moment at both the upper and lower esophagus. The scope is withdrawn. There was no family to discuss the findings with at this time. She is to have room temperature liquids for four hours and advance as tolerated. I will see her back in the office next week.
--- NOTE | 2022-02-06 16:34 | XRAY ---
10 seconds of fluoroscopy was used in surgery for guidance during an EGD with dilation.
== END 2022-02-04 13:40 | disposition home or self-care (01) ==
LOC: SDC 09:35
PROVIDERS: ATTEND Surgery
DX: R13.14 Dysphagia, pharyngoesophageal phase (principal); K31.7 Polyp of stomach and duodenum; Z80.8 Family history of malignant neoplasm of other organs or systems
CPT/HCPCS: 71045; 76000; 99100; J0330; J0360; J2704

== ENCOUNTER 2022-10-09 11:17 | Day surgery (SDC) | payer MEDICARE, OTHER ==
[2022-10-09] MEDS ORDERED: BUPIVACAINE 0.5% VIAL IJ ONE (11:18)
[2022-10-09] MEDS ORDERED: Depo-Medrol 40 MG/ML IM ONE (11:18)
[2022-10-09] MEDS ORDERED: DIPRIVAN 200 MG/20 ML IV ONE (13:33)
--- NOTE | 2022-10-09 14:39 | XRAY ---
Indication: Bilateral greater trochanter bursa injection. Intraoperative fluoroscopy provided for 20 seconds. 2 digital spot image submitted for interpretation demonstrates needle tip projecting lateral to the left and right greater trochanters. Small amount of contrast injected for both needle tip placement. Correlate with intraoperative findings/report.
--- NOTE | 2022-10-09 14:41 | XRAY ---
20 seconds of fluoroscopy was used in surgery for a bilateral greater trochanteric bursa injection.
[2022-10-09] MEDS ORDERED: Lactated Ringers 1,000 ML IV ONE (14:49)
== END 2022-10-09 14:10 | disposition home or self-care (01) ==
LOC: SDC-PAIN 11:17
PROVIDERS: ATTEND Psychiatry & Neurology Pain Medicine
DX: M70.62 Trochanteric bursitis, left hip (principal); M70.61 Trochanteric bursitis, right hip; Z79.899 Other long term (current) drug therapy
CPT/HCPCS: 20610; 73521; 77002; J1030; J2704; Q9966

== ENCOUNTER 2023-03-12 10:37 | Day surgery (SDC) | payer MEDICARE, OTHER ==
[2023-03-12] MEDS ORDERED: BUPIVACAINE 0.5% VIAL IJ ONE (10:38)
[2023-03-12] MEDS ORDERED: Depo-Medrol 40 MG/ML IM ONE (10:38)
[2023-03-12] MEDS ORDERED: DIPRIVAN 200 MG/20 ML IV ONE (12:33)
--- NOTE | 2023-03-12 13:09 | XRAY ---
Indication: Bilateral SI joint injection. Intraoperative fluoroscopy provided for 22 seconds. 4 digital spot image submitted for interpretation demonstrates posterior needle tip projecting over the left and right SI joint. Correlate with intraoperative findings/report.
--- NOTE | 2023-03-12 13:15 | XRAY ---
22 seconds of fluoroscopy was used in surgery for a bilateral sacroiliac joint injection.
[2023-03-12] MEDS ORDERED: Lactated Ringers 1,000 ML IV ONE (14:01)
== END 2023-03-12 12:58 | disposition home or self-care (01) ==
LOC: SDC-PAIN 10:37
PROVIDERS: ATTEND Psychiatry & Neurology Pain Medicine
DX: M46.1 Sacroiliitis, not elsewhere classified (principal); Z79.899 Other long term (current) drug therapy
CPT/HCPCS: 01992; 27096; 72202; 77002; 99100; G0260; J1030; J2704

== ENCOUNTER 2023-08-06 10:42 | Day surgery (SDC) | payer MEDICARE ==
[2023-08-06] MEDS ORDERED: BUPIVACAINE 0.5% VIAL IJ ONE (10:43)
[2023-08-06] MEDS ORDERED: Depo-Medrol 40 MG/ML IM ONE (10:43)
[2023-08-06] MEDS ORDERED: DIPRIVAN 200 MG/20 ML IV ONE (13:20)
--- NOTE | 2023-08-06 14:21 | XRAY ---
Indication: Bilateral SI joint and greater trochanter bursa injection. Intraoperative fluoroscopy provided for 47 seconds. 7 digital spot image submitted for interpretation demonstrates posterior needle tip projecting over the left and right SI joint. Additional needle tip projecting lateral to left and right greater trochanters. Small amount of contrast injected for all needle tip placement. Correlate with intraoperative findings/report.
[2023-08-06] MEDS ORDERED: Lactated Ringers 1,000 ML IV ONE (14:23)
--- NOTE | 2023-08-06 15:07 | XRAY ---
47 seconds of fluoroscopy was used in surgery for a bilateral sacroiliac joint and bilateral greater trochanteric bursa injection.
== END 2023-08-06 13:50 | disposition home or self-care (01) ==
LOC: SDC-PAIN 10:42
PROVIDERS: ATTEND Psychiatry & Neurology Pain Medicine
DX: M46.1 Sacroiliitis, not elsewhere classified (principal); M70.62 Trochanteric bursitis, left hip; M70.61 Trochanteric bursitis, right hip
CPT/HCPCS: 01992; 20610; 27096; 73522; 77002; 99100; G0260; J1030; J2704; Q9966

== ENCOUNTER 2023-11-05 14:42 | Day surgery (SDC) | payer MEDICARE ==
[2023-11-05] MEDS ORDERED: Depo-Medrol 40 MG/ML IM ONE (14:43)
[2023-11-05] MEDS ORDERED: Decadron 4 MG INJ IV ONE (14:43)
[2023-11-05] MEDS ORDERED: LIDOCAINE HCL 1% 50 MG/5 ML VL PF IJ ONE (14:43)
[2023-11-05] MEDS ORDERED: BUPIVACAINE 0.5% VIAL IJ ONE (14:43)
--- NOTE | 2023-11-05 21:02 | XRAY ---
Indication: Right piriformis and right greater trochanter bursa injection Intraoperative fluoroscopy provided for 25 seconds. 2 digital spot image submitted for interpretation demonstrates posterior needle tip projecting over the right piriformis. Second needle tip lateral to right greater trochanter. Small amount of contrast injected for both needle tip placement. Correlate with intraoperative findings/report.
--- NOTE | 2023-11-06 08:57 | XRAY ---
25 seconds of fluoroscopy was used in surgery for a right greater trochanteric bursa and piriformis injection.
== END 2023-11-05 18:12 | disposition home or self-care (01) ==
LOC: SDC-PAIN 14:42
PROVIDERS: ATTEND Psychiatry & Neurology Pain Medicine
DX: M70.61 Trochanteric bursitis, right hip (principal)
CPT/HCPCS: 20553; 20610; 73501; 76942; 77002; J1010; J1100; J2001; Q9966